=== PATIENT | female | born 1945 | race Caucasian/White ===

== ENCOUNTER 2017-11-20 12:06 | Emergency (ER) | payer MEDICARE, OTHER, SELFPAY ==
[2017-11-20 12:20] VITALS: BP 128/77; PULSE 68; RESP 16; O2SAT 98
--- NOTE | 2017-11-20 12:34 | DI.RAD.S_ITS ---
PROCEDURE: XR WRIST LT MIN 3V INDICATIONS: fall TECHNIQUE: 4 views of the wrist were acquired. COMPARISON: None. FINDINGS: Bones: No fractures or dislocations. No suspicious bony lesions. Scaphoid view: No trauma. Soft tissues: No suspicious soft tissue calcifications. IMPRESSION: No trauma. Dictated by: Galindo Osborne M.D. on 11/20/2017 at 13:12 Approved by: Galindo Osborne M.D. on 11/20/2017 at 13:13
--- NOTE | 2017-11-20 12:34 | DI.RAD.S_ITS ---
PROCEDURE: XR HAND LT MIN 3V INDICATIONS: fall TECHNIQUE: 3 views of the hand(s) acquired. COMPARISON: None. FINDINGS: Bones: No fractures or dislocations. Carpal bones are normally aligned. No suspicious bony lesions. Note is made of mild chronic appearing distortion of the mid shaft of the fifth distal phalanx. Soft tissues: No suspicious soft tissue calcifications. IMPRESSION: No acute trauma. Dictated by: Galindo Osborne M.D. on 11/20/2017 at 13:13 Approved by: Galindo Osborne M.D. on 11/20/2017 at 13:14
--- NOTE | 2017-11-20 12:34 | DI.RAD.S_ITS ---
PROCEDURE: XR WRIST RT MIN 3V INDICATIONS: fall TECHNIQUE: 4 views of the wrist were acquired. COMPARISON: None. FINDINGS: Bones: No acute fractures or dislocations. 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 suspicious bony lesions. Scaphoid view: No trauma. Soft tissues: No suspicious soft tissue calcifications. IMPRESSION: No acute trauma. Old fractures of the distal radius and ulna. Dictated by: Galindo Osborne M.D. on 11/20/2017 at 13:11 Approved by: Galindo Osborne M.D. on 11/20/2017 at 13:12
--- NOTE | 2017-11-20 12:34 | DI.RAD.S_ITS ---
PROCEDURE: XR HAND RT MIN 3V INDICATIONS: fall TECHNIQUE: 3 views of the hand(s) acquired. COMPARISON: [facility], CR, XR WRIST RT MIN 3V, 11/20/2017, 12:23. FINDINGS: Bones: No acute fractures or dislocations. Carpal bones are normally aligned. No suspicious bony lesions. Soft tissues: No suspicious soft tissue calcifications. IMPRESSION: Old trauma the distal radius and ulna, no acute trauma found. Dictated by: Galindo Osborne M.D. on 11/20/2017 at 13:14 Approved by: Galindo Osborne M.D. on 11/20/2017 at 13:15
[2017-11-20 12:43] VITALS: PULSE 77
--- NOTE | 2017-11-20 13:08 | ED.UPPEXIN ---
HPI - Extremity Injury (Upper) <Irene Loomis PA-C - Last Filed: 11/20/17 22:02> General Chief Complaint: Extremity Injury, Upper Stated Complaint: Ground Level Fall Time Seen by Provider: 11/20/17 13:07 Source: patient Mode of arrival: ambulatory Limitations: no limitations History of Present Illness HPI narrative: This 72-year-old female was walking quickly on carpet when she dragged her left foot and pitch forward, landing with all of her weight on both of her hands and wrists. 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 She states that her shoulders were also sore at 1st but now not painful and she does not think any injury. She did not hit her head or anywhere else. Denies any neck pain or other injury. She states that she has pain in both wrists and hands. Pain seems to radiate into the lateral fingers on both sides and is similar to previous nerve pain she had with carpal tunnel syndrome. She also notes that she has arthritis in both hands. She took Tylenol at home. Does not take NSAIDs secondary to GI upset Related Data Home Medications Medication Instructions Recorded Confirmed [Calcium Citrate] 300 mg PO QDAY #0 12/12/11 10/16/17 CA PANTOTHENATE/FOLIC ACID/VIT 1 tab PO BID #0 02/21/12 10/16/17 (MULTIVITAMIN) [VITAMIN B12] 1,000 mcg SUBLINGUAL #0 03/29/12 10/16/17 [ZINC] #0 11/15/12 10/16/17 ascorbic acid (vitamin C) 1,000 mg PO BID #0 tab 11/17/15 10/16/17 cholecalciferol (vitamin D3) 1 tab PO BID #0 11/17/15 10/16/17 [Vitamin D3] coenzyme Q10 75 mg capsule 75 mg PO DAILY 10/16/17 10/16/17 garlic 1,000 mg capsule 1,000 mg PO QPC 10/16/17 10/16/17 iodine 150 mcg tablet mcg PO tab 10/16/17 10/16/17 magnesium 30 mg tablet 30 mg PO DAILY 10/16/17 10/16/17 prasterone (dhea) 25 mg capsule 25 mg PO DAILY 10/16/17 10/16/17 Previous Rx's Medication Instructions Recorded acyclovir 400 mg PO TID #30 tab 12/03/15 [CMP ESTRIOL SUPP] 0.2 % VAGINAL SEE INSTRUCTIONS #24 06/05/17 tab lisinopril 5 mg PO QDAY #90 tab 06/13/17 bupropion HCl 100 mg PO BID #180 tab 07/03/17 diazepam 0 PO QDAY PRN #360 tab 07/03/17 diltiazem HCl [Tiazac] 360 mg PO QDAY #180 cap 07/03/17 potassium chloride 20 meq PO QDAY #180 tab 07/03/17 thyroid (pork) [[place] Thyroid] 0 PO SEE INSTRUCTIONS #135 tab 07/03/17 varicella-zoster gE-AS01B (PF) 0.5 ml IM X1 #1 ea 07/03/17 [Shingrix (PF)] tramadol 50 mg tablet 0 mg PO QIDP PRN #180 tab MDD 6 07/24/17 [CMP PROGESTERONE] SEE INSTRUCTIONS #0 10/10/17 [ESTRADIOL/ESTRIOL] 0 SEE INSTRUCTIONS #30 gm 10/10/17 hydrocortisone 2.5 % topical cream 1 applictn TOP TID PRN #30 gram 10/24/17 oxycodone-acetaminophen [Percocet] 1 tab PO Q4-6H PRN #7 tab 11/20/17 Allergies Allergy/AdvReac Type Severity Reaction Status Date / Time diclofenac [DICLOFENAC] Allergy Severe Hives, Unverified 10/16/17 09:12 fever, very sick, hospitalized Exam <Irene Loomis PA-C - Last Filed: 11/20/17 22:02> Narrative Exam Narrative: GENERAL APPEARANCE: Patient sitting comfortably, in no distress. LUNGS: Clear to auscultation bilaterally. HEART: Rate and rhythm regular without murmur, normal S1 and S2, no S3 or S4. MUSCULOSKELETAL: All of the fingers on both hands are nodular as is the right medial wrist joint. No tenderness over either shoulder, full range of motion. No tenderness over the elbows, full range of motion. She does not appear to have forearm tenderness. She has minimal tenderness over both wrists without any bony point tenderness. She is exquisitely tender over the right 2nd metacarpal and pointer finger as well as the left thumb, pointer, and middle fingers and metacarpals. She is able to nearly fully extend all of the fingers with tenderness on the lateral sides. Unable to assess strength secondary to tenderness. NEUROVASCULAR: Fingers are warm and pink with brisk cap refill bilaterally. Sensation is grossly intact Initial Vital Signs Initial Vital Signs: Vital Signs Pulse Rate 68 11/20/17 12:20 Respiratory Rate 16 11/20/17 12:20 Blood Pressure 128/77 H 11/20/17 12:20 Pulse Oximetry 98 11/20/17 12:20 <DO Caitlin Moise Last Filed: 11/21/17 14:19> Initial Vital Signs Initial Vital Signs: Vital Signs Pulse Rate 68 11/20/17 12:20 Respiratory Rate 16 11/20/17 12:20 Blood Pressure 128/77 H 11/20/17 12:20 Pulse Oximetry 98 11/20/17 12:20 Course <HOWARD Pruitt Last Filed: 11/20/17 22:02> Orders Ordered: Discontinued Medications Hydrocodone Bitart/Acetaminophen ([place] 5/325) 2 tab PO NOW ONE Stop: 11/20/17 13:23 Last Admin: 11/20/17 13:31 Dose: 2 tab Vital Signs - 8 hr 11/20/17 14:50 Pulse Rate 58 L Respiratory Rate 14 Blood Pressure [Left Arm] 113/72 Pulse Oximetry 97 <DO Caitlin Moise Last Filed: 11/21/17 14:19> Orders Ordered: Discontinued Medications Hydrocodone Bitart/Acetaminophen ([place] 5/325) 2 tab PO NOW ONE Stop: 11/20/17 13:23 Last Admin: 11/20/17 13:31 Dose: 2 tab Vital Signs - 8 hr 11/20/17 14:50 Pulse Rate 58 L Respiratory Rate 14 Blood Pressure [Left Arm] 113/72 Pulse Oximetry 97 MDM - Extremity Injury (Upper) <HOWARD Pruitt Last Filed: 11/20/17 22:02> Imaging Data extremities: Radiologist's impression: View Report History [address] [address] XRay Report Signed Patient: Liliana Magallon MR#: [id number] : 1945 Acct:[id number] Age/Sex: 72 / F Date of Service: 11/20/17 Loc: ED Accession Number: [id number] Procedure: XR wrist RT min 3V Ordering Provider: Irene Loomis P.A-C PROCEDURE: XR WRIST RT MIN 3V INDICATIONS: fall TECHNIQUE: 4 views of the wrist were acquired. COMPARISON: None. FINDINGS: Bones: No acute fractures or dislocations. 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 suspicious bony lesions. Scaphoid view: No trauma. Soft tissues: No suspicious soft tissue calcifications. IMPRESSION: No acute trauma. Old fractures of the distal radius and ulna. Dictated by: Galindo Osborne M.D. on 11/20/2017 at 13:11 Approved by: Galindo Osborne M.D. on 11/20/2017 at 13:12 CLOSE Wrist X-Ray (Signed) Dylon,Galindo - 11/20/17 Wrist X-Ray (Signed) Dylon,Galindo - 11/20/17 Hand X-Ray (Signed) Dylon,Galindo - 11/20/17 Hand X-Ray (Signed) Galindo Osborne - 11/20/17 [place] [address] XRay Report Signed Patient: Liliana Magallon MR#: [id number] : 1945 Acct:[id number] Age/Sex: 72 / F Date of Service: 11/20/17 Loc: ED Accession Number: [id number] Procedure: XR wrist LT min 3V Ordering Provider: Irene Loomis P.A-C PROCEDURE: XR WRIST LT MIN 3V INDICATIONS: fall TECHNIQUE: 4 views of the wrist were acquired. COMPARISON: None. FINDINGS: Bones: No fractures or dislocations. No suspicious bony lesions. Scaphoid view: No trauma. Soft tissues: No suspicious soft tissue calcifications. IMPRESSION: No trauma. Dictated by: Galindo Osborne M.D. on 11/20/2017 at 13:12 Approved by: Galindo Osborne M.D. on 11/20/2017 at 13:13 [place] [address] XRay Report Signed Patient: Liliana Magallon MR#: [id number] : 1945 Acct:[id number] Age/Sex: 72 / F Date of Service: 11/20/17 Loc: ED Accession Number: [id number] Procedure: XR hand LT min 3V Ordering Provider: Irene Loomis P.A-C PROCEDURE: XR HAND LT MIN 3V INDICATIONS: fall TECHNIQUE: 3 views of the hand(s) acquired. COMPARISON: None. FINDINGS: Bones: No fractures or dislocations. Carpal bones are normally aligned. No suspicious bony lesions. Note is made of mild chronic appearing distortion of the mid shaft of the fifth distal phalanx. Soft tissues: No suspicious soft tissue calcifications. IMPRESSION: No acute trauma. Dictated by: Galindo Osborne M.D. on 11/20/2017 at 13:13 Approved by: Galindo Osborne M.D. on 11/20/2017 at 13:14 [place] [address] XRay Report Signed Patient: Liliana Magallon MR#: [id number] : 1945 Acct:[id number] Age/Sex: 72 / F Date of Service: 11/20/17 Loc: ED Accession Number: [id number] Procedure: XR hand LT min 3V Ordering Provider: Irene Loomis P.A-C PROCEDURE: XR HAND LT MIN 3V INDICATIONS: fall TECHNIQUE: 3 views of the hand(s) acquired. COMPARISON: None. FINDINGS: Bones: No fractures or dislocations. Carpal bones are normally aligned. No suspicious bony lesions. Note is made of mild chronic appearing distortion of the mid shaft of the fifth distal phalanx. Soft tissues: No suspicious soft tissue calcifications. IMPRESSION: No acute trauma. Dictated by: Galindo Osborne M.D. on 11/20/2017 at 13:13 Approved by: Galindo Osborne M.D. on 11/20/2017 at 13:14 Discharge Plan Departure Patient Disposition: Home Clinical Impression: Contusion of multiple sites of hand and wrist, Osteoarthritis Discharge Date/Time: 11/20/17 14:59 Interventions: ED Discharge Assessment Last Done: 11/20/17 14:58 Instructions: DI for Osteoarthritis, DI for Wrist Pain Activity Restrictions/Additional Instructions: Please continue wearing the brandon-wraps we provided to your mid fingers, and then wear your carpal tunnel splints over these. Keep these on 16/10 for now, and follow up with your PCP within the next week to reassess. You can take Percocet for the next day or so if you need since that worked well for you previously, but do not drive as this could make you sleepy. If you can take a small dose of anti-inflammatory such as ibuprofen or Aleve with food please add that as well as it is likely to be helpful for pain and swelling. There does not appear to be any acute fracture on your x-rays today, however you do have a significant amount of arthritis, and the fall and contusions likely exacerbated this as well as your nerve pain that you have had in the past. If you are not getting better, you may need repeat x-rays or studies when you see your PCP. You should return if you have any new or acutely worsening symptoms in the interim Prescriptions: New oxycodone-acetaminophen [Percocet] 5-325 mg tablet 1 tab PO Q4-6H PRN (Reason: pain in hands and wrists) Qty: 7 RF: 0 No Action [Calcium Citrate] 300 mg PO QDAY Qty: 0 RF: 0 CA PANTOTHENATE/FOLIC ACID/VIT (MULTIVITAMIN) 1 tab PO BID Qty: 0 RF: 0 [VITAMIN B12] 1,000 mcg Sublingual Qty: 0 RF: 0 [ZINC] Qty: 0 RF: 0 cholecalciferol (vitamin D3) [Vitamin D3] 2,000 UNIT tablet 1 tab PO BID Qty: 0 RF: 0 ascorbic acid (vitamin C) 500 MG tablet 1,000 mg PO BID Qty: 0 RF: 0 acyclovir 400 MG tablet 400 mg PO TID Qty: 30 RF: 5 [CMP ESTRIOL SUPP] 0.2 % Vaginal SEE INSTRUCTIONS Qty: 24 RF: 3 lisinopril 5 MG tablet 5 mg PO QDAY Qty: 90 RF: 3 varicella-zoster gE-AS01B (PF) [Shingrix (PF)] 50 MCG/0.5 ML suspension for reconstitution 0.5 ml IM X1 Qty: 1 RF: 0 diazepam 5 MG tablet PO QDAY PRN Qty: 360 RF: 1 diltiazem HCl [Tiazac] 180 MG capsule,extended release 24 hr 360 mg PO QDAY Qty: 180 RF: 3 potassium chloride 10 MEQ tablet extended release 20 meq PO QDAY Qty: 180 RF: 3 bupropion HCl 100 MG tablet 100 mg PO BID Qty: 180 RF: 3 thyroid (pork) [[place] Thyroid] 60 MG tablet PO SEE INSTRUCTIONS Qty: 135 RF: 3 tramadol 50 mg tablet PO QIDP MDD 6 PRN (Reason: pain) Qty: 180 RF: 3 [CMP PROGESTERONE] SEE INSTRUCTIONS Qty: 0 RF: 3 [ESTRADIOL/ESTRIOL] SEE INSTRUCTIONS Qty: 30 RF: 3 hydrocortisone 2.5 % cream 1 applictn TOP TID PRN (Reason: rash) Qty: 30 RF: 1 magnesium 30 mg tablet 30 mg PO DAILY RF: 0 iodine 150 mcg tablet PO RF: 0 coenzyme Q10 [Ultra CoQ10] 75 mg capsule 75 mg PO DAILY RF: 0 garlic 1,000 mg capsule 1,000 mg PO QPC RF: 0 prasterone (dhea) [DHEA] 25 mg capsule 25 mg PO DAILY RF: 0 Referrals: Jeison Morrison MD [Primary Care Provider] - <Sandra Ruiz DO - Last Filed: 11/21/17 14:19> Cosign ED Attending Cosignature Attestation: I was immediately available in the department for consultation. Documentation has been reviewed. I agree with assessment and plan.
[2017-11-20] MEDS: HYDROCODONE/ACET 5/325 TABLET 2 TAB PO (13:31)
[2017-11-20 14:50] VITALS: BP 113/72; PULSE 58; RESP 14; O2SAT 97
== END 2017-11-20 14:59 | disposition home or self-care (01) ==
PROVIDERS: Emergency Provider Internal Medicine; PCP Family Medicine
DX: S60.222A Contusion of left hand, initial encounter (principal); S60.212A Contusion of left wrist, initial encounter; S60.221A Contusion of right hand, initial encounter; S60.211A Contusion of right wrist, initial encounter; M19.90 Unspecified osteoarthritis, unspecified site; W01.0XXA Fall on same level from slipping, tripping and stumbling without subsequent striking against object, initial encounter
CPT/HCPCS: 29125; 73110; 73130; 99282; 99283

== ENCOUNTER → 2017-12-20 12:06 | Outpatient (CLI) | payer MEDICARE, OTHER, SELFPAY ==
--- NOTE | 2017-12-20 12:09 | DI.MG.S_ITS ---
BILATERAL DIGITAL SCREENING MAMMOGRAM 3D/2D WITH CAD: 12/20/2017 CLINICAL: Routine screening. Family history of breast cancer. Comparison is made to exams dated: 06/26/2016 mammogram, 06/25/2015 mammogram, and 05/14/2014 mammogram - [facility]. The tissue of both breasts is extremely dense, which lowers the sensitivity of mammography. Current study was also evaluated with a Computer Aided Detection (CAD) system. There is an asymmetry in the left breast posterior depth superior region seen on the mediolateral oblique view only. No other significant masses, calcifications, or other findings are seen in either breast. IMPRESSION: INCOMPLETE: NEEDS ADDITIONAL IMAGING EVALUATION The asymmetry in the left breast is indeterminate. Additional views with possible ultrasound are recommended. This exam was interpreted at Station ID: [id number]. NOTE: For mammograms, a report in lay terms will be sent to the patient. Approximately 15% of breast malignancies will not be visualized mammographically. In the management of a palpable breast mass, a negative mammogram must not discourage biopsy of a clinically suspicious lesion. Electronically Signed By: Thao benson/yvan:12/21/2017 14:33:45 letter sent: Additional Imaging Needed ACR BI-RADS Category 0: Incomplete [id number]
== END ==
PROVIDERS: PCP Family Medicine; Visit Provider Obstetrics & Gynecology
DX: Z12.31 Encounter for screening mammogram for malignant neoplasm of breast (principal); Z80.3 Family history of malignant neoplasm of breast
CPT/HCPCS: 77063; 77067

== ENCOUNTER → 2018-01-07 10:55 | Outpatient (CLI) | payer MEDICARE, OTHER, SELFPAY ==
[2018-01-07 12:22] LABS: Add Manual Diff / Slide Review NO; Basophils Percent Auto 0.9 % (0-2); Eosinophils Percent Auto 2.5 % (2-4); Hematocrit 41.5 % (36-46); Lymphocytes Percent Auto 22.5 % (25-40); Mean Corpuscular HGB Conc 33.8 % (30-36); Mean Corpuscular Hemoglobin 32.3 PG (26-34); Mean Corpuscular Volume 95.5 fL (80-100); Monocytes Percent Auto 6.1 % (3-14); Neutrophils Absolute Auto 3700 /uL (3000-5900); Platelet Count 277 X10^3/uL (150-400); Red Blood Cell Count 4.34 X10^6/uL (4.0-5.2); Red Cell Distribution Width 13.8 % (11.6-14.8); White Blood Cell Count 5.4 X10^3/uL (4.5-11.0)
[2018-01-07 12:38] LABS: Alanine Aminotransferase 24 IU/L (9-52); Albumin 4.4 g/dL (3.5-5.0); Albumin Globulin Ratio 1.9 (1.0-2.8); Alkaline Phosphatase 75 U/L (38-126); Aspartate Aminotransferase 27 IU/L (14-36); BUN Creatinine Ratio 16.7 (6-22); Bilirubin Total 0.6 mg/dL (0.2-1.3); Blood Urea Nitrogen 15 mg/dL (7-17); Calcium 9.5 mg/dL (8.4-10.2); Carbon Dioxide 33 mmol/L (22-32); Chloride 103 mmol/L (98-107); Cholesterol 210 mg/dL (140-199); Estimated Glomerular Filt Rate > 60.0 mL/min (>60); Globulin 2.3 g/dL (1.7-4.1); Glucose 81 mg/dL (80-110); HDL Cholesterol 85 mg/dL (40-60); HEMOLYSIS < 15 (0-50); LDL Cholesterol Calculated 112 mg/dL (<100); Potassium 4.6 mmol/L (3.4-5.1); Sodium 144 mmol/L (137-145); Total Protein 6.7 g/dL (6.3-8.2); Triglycerides 66 mg/dL (35-150)
[2018-01-07 12:40] LABS: HEMOLYSIS < 15 (0-50); Iron 121 ug/dL (37-170)
[2018-01-07 12:51] LABS: Free T3, Triiodothyronine Free 3.78 pg/mL (2.77-5.27); Percent Iron Saturation 55 % (15-50); Total Iron Binding Capacity 220 ug/dL (265-497); Transferrin 192 mg/dL (206-381)
[2018-01-07 13:05] LABS: TSH w/ Reflex to FT4 0.72 uIU/mL (0.47-4.68)
== END ==
PROVIDERS: PCP Family Medicine; Visit Provider Family Medicine
DX: Z01.810 Encounter for preprocedural cardiovascular examination (principal); E03.9 Hypothyroidism, unspecified; E78.5 Hyperlipidemia, unspecified; E61.1 Iron deficiency; I10 Essential (primary) hypertension
CPT/HCPCS: 36415; 80053; 80061; 82728; 83540; 83550; 84443; 84481; 85025; 93005; 93010

== ENCOUNTER → 2018-01-14 09:27 | Outpatient (CLI) | payer MEDICARE, OTHER, SELFPAY ==
--- NOTE | 2018-01-14 09:29 | DI.MG.S_ITS ---
UNILATERAL LEFT DIGITAL DIAGNOSTIC MAMMOGRAM 3D/2D WITH ADDITIONAL VIEWS: 01/14/2018 CLINICAL: Additional evaluation requested from prior study. Family history of breast cancer. Comparison is made to exams dated: 12/20/2017 mammogram, 06/26/2016 mammogram, and 06/25/2015 mammogram - [facility]. The tissue of left breast is extremely dense, which lowers the sensitivity of mammography. The asymmetry in the left breast posterior depth superior region seen on the mediolateral oblique view only is not seen in additional views. No other significant masses or calcifications are seen in the breast. IMPRESSION: There is no mammographic evidence of malignancy. A 1 year screening mammogram is recommended. This exam was interpreted at Station ID: [id number]. NOTE: For mammograms, a report in lay terms will be sent to the patient. Approximately 15% of breast malignancies will not be visualized mammographically. In the management of a palpable breast mass, a negative mammogram must not discourage biopsy of a clinically suspicious lesion. Electronically Signed By: Thao Carter M.D. lk/:01/14/2018 09:52:31 letter sent: Normal Exam ACR BI-RADS Category 2: Benign Finding(s) 3342F
== END ==
PROVIDERS: Visit Provider Obstetrics & Gynecology
DX: R92.8 Other abnormal and inconclusive findings on diagnostic imaging of breast (principal); Z80.3 Family history of malignant neoplasm of breast
CPT/HCPCS: 77065; G0279

== ENCOUNTER 2018-02-02 11:06 | Emergency (ER) | payer MEDICARE, OTHER, SELFPAY ==
[2018-02-02 11:12] VITALS: BP 178/67; PULSE 82; RESP 18; TEMP 37.1; O2SAT 99
--- NOTE | 2018-02-02 11:56 | DI.RAD.S_ITS ---
PROCEDURE: XR FOOT RT MIN 3V INDICATIONS: foot pain, no injury TECHNIQUE: 3 views of the foot were acquired. COMPARISON: None. FINDINGS: Bones: Small linear calcification is noted adjacent to the fifth metatarsal base. No suspicious bony lesions. There is diffuse IP degenerative narrowing particularly within the first digit consistent with degenerative change. Soft tissues: No tibiotalar joint effusion. Achilles tendon appears normal. IMPRESSION: Small linear calcification adjacent to the fifth metatarsal base. This could be reflective of a small bone spur. Ultimately, small avulsion injury indeterminate age cannot be excluded. Dictated by: Alicia Davila M.D. on 02/02/2018 at 12:11 Approved by: Alicia Davila M.D. on 02/02/2018 at 12:12
--- NOTE | 2018-02-02 12:01 | ED_ITS ---
HPI - Extremity Problem General Chief complaint: Extremity Problem,Nontraumatic Stated complaint: RT FOOT PAIN Time Seen by Provider: 02/02/18 11:10 Source: patient Mode of arrival: ambulatory Limitations: no limitations History of Present Illness HPI Narrative: 72-year-old nonsmoking female presents with a chief complaint of gradually worsening right foot pain in the absence of any injury for the past 4 days. She denies any specific injury, overuse injury or other suggestion of etiology of this pain. She denies any redness or swelling. She denies any history of the same. She denies any knee or hip pain on the same side. She states that her pain is worse with ambulation and improves with rest. Additionally she states her pain is better if she externally rotates her foot while walking, like a duck. She does state that she wore a new pair of boots for a few days prior to her pain starting MD Complaint: extremity pain Onset (ago): day(s) Pain Consistency: intermittent Location: right Quality: burning and stabbing Radiation: none Relieving factors: rest Exacerbating factors: range of motion, weight bearing and walking Associated symptoms: denies other symptoms Related Data Home Medications Medication Instructions Recorded Confirmed [Calcium Citrate] 300 mg PO QDAY #0 12/12/11 10/16/17 CA PANTOTHENATE/FOLIC ACID/VIT 1 tab PO BID #0 02/21/12 10/16/17 (MULTIVITAMIN) [VITAMIN B12] 1,000 mcg SUBLINGUAL #0 03/29/12 10/16/17 [ZINC] #0 11/15/12 10/16/17 ascorbic acid (vitamin C) 1,000 mg PO BID #0 tab 11/17/15 10/16/17 cholecalciferol (vitamin D3) 1 tab PO BID #0 11/17/15 10/16/17 [Vitamin D3] coenzyme Q10 75 mg capsule 75 mg PO DAILY 10/16/17 10/16/17 garlic 1,000 mg capsule 1,000 mg PO QPC 10/16/17 10/16/17 iodine 150 mcg tablet mcg PO tab 10/16/17 10/16/17 magnesium 30 mg tablet 30 mg PO DAILY 10/16/17 10/16/17 prasterone (dhea) 25 mg capsule 25 mg PO DAILY 10/16/17 10/16/17 Previous Rx's Medication Instructions Recorded acyclovir 400 mg PO TID #30 tab 12/03/15 [CMP ESTRIOL SUPP] 0.2 % VAGINAL SEE INSTRUCTIONS #24 06/05/17 tab lisinopril 5 mg PO QDAY #90 tab 06/13/17 bupropion HCl 100 mg PO BID #180 tab 07/03/17 diltiazem HCl [Tiazac] 360 mg PO QDAY #180 cap 07/03/17 potassium chloride 20 meq PO QDAY #180 tab 07/03/17 thyroid (pork) [[place] Thyroid] 0 PO SEE INSTRUCTIONS #135 tab 07/03/17 varicella-zoster gE-AS01B (PF) 0.5 ml IM X1 #1 ea 07/03/17 [Shingrix (PF)] tramadol 50 mg tablet 0 mg PO QIDP PRN #180 tab MDD 6 07/24/17 [CMP PROGESTERONE] SEE INSTRUCTIONS #0 10/10/17 [ESTRADIOL/ESTRIOL] 0 SEE INSTRUCTIONS #30 gm 10/10/17 hydrocortisone 2.5 % topical cream 1 applictn TOP TID PRN #30 gram 10/24/17 oxycodone-acetaminophen [Percocet] 1 tab PO Q4-6H PRN #7 tab 11/20/17 diazepam 5 mg tablet 5 mg PO QDAY PRN #90 tab 01/29/18 Allergies Allergy/AdvReac Type Severity Reaction Status Date / Time diclofenac [DICLOFENAC] Allergy Severe Hives, Unverified 10/16/17 09:12 fever, very sick, hospitalized Review of Systems Review of Systems All systems reviewed & are unremarkable except as noted in HPI and below Constitutional Denies chills, Denies fever(s), Denies lethargy and Denies weakness Eyes Denies change in vision, Denies eye discharge, Denies irritation and Denies loss of vision ENT Ears, Nose, Mouth, and Throat: Denies change in voice, Denies neck pain and Denies sore throat Cardiovascular Denies chest pain, Denies irregular heart rhythm, Denies lightheadedness, Denies palpitations, Denies dyspnea, Denies dyspnea on exertion and Denies orthopnea Respiratory Denies cough, Denies dyspnea, Denies dyspnea on exertion and Denies wheezing Gastrointestinal Gastrointestinal: Denies abdominal pain, Denies change in bowel habits, Denies diarrhea, Denies nausea and Denies vomiting Genitourinary Denies hematuria, Denies flank pain, Denies urinary incontinence and Denies urinary urgency Musculoskeletal Reports limited range of motion and Denies neck pain Integumentary/Breasts Denies pruritus, Denies erythema, Denies rash and Denies wounds Neurologic Denies confusion, Denies loss of vision and Denies weakness Psychiatric Denies anxiety, Denies confusion, Denies depression, Denies homicidal ideation and Denies suicidal ideation Endocrine Denies palpitations Hematologic/Lymphatic Denies easy bruising Allergic/Immunologic Denies wheezing FOR[facility]LY [facility], [facility] Medical History Alopecia (Chronic) Anxiety (Chronic) Arthritis of knee (Chronic) Cataract (Chronic 2015) Depression (Chronic) Frequent UTI (Chronic 2012) Herpes simplex (Chronic ~1979) Hyperlipidemia (Chronic) Hypertension (Chronic ~1979) Hypothyroidism (Chronic 2012) Lactose intolerance (Chronic) Osteoarthritis (Chronic) Sleep disorder, shift work (Chronic) Ulcerative colitis (Chronic 1986) CTS (carpal tunnel syndrome) (Resolved 2014) Chicken pox (Resolved 1952) Chronic back pain (Resolved 1983) Colon polyps (Resolved 2009) Fractures (Resolved 1985) Gout (Resolved 1999) History of iron deficiency (Resolved 2012) History of thyroid cyst (Resolved 1973) Lumbar spinal stenosis (Resolved 2015) Measles (Resolved ~1952) Mumps (Resolved ~1952) Ovarian cyst (Resolved 1982) Rubella (Resolved 1952) Surgical History Anesthesia (Resolved) History of carpal tunnel release (Resolved 01/05/15) History of cosmetic surgery (Resolved 01/14/15) History of cosmetic surgery (Resolved 1997) History of knee replacement (Resolved 03/2012) History of left knee surgery (Resolved 2009) History of left knee surgery (Resolved 2011) History of right knee surgery (Resolved 2008) History of spinal surgery (Resolved 05/17/15) History of surgery (Resolved 1985) History of surgery (Resolved 1988) History of third molar tooth extraction (Resolved) History of thyroidectomy (Resolved 1973) Status post ovarian cystectomy (Resolved 1982) Status post tonsillectomy and adenoidectomy (Resolved) Status post tubal ligation (Resolved 1983) Family History Brother Age: 69 Diabetes mellitus Melanoma Father Alcoholism Paget's disease of bone at multiple sites Grandfather CAD (coronary artery disease) Heart disease Hypertension Stroke Grandmother Dementia, Onset Age: 90 Absence of kidney Mother Age: 94 Hypertension Hyperlipidemia Stroke, Onset Age: 70 Breast cancer Grandmother Type 1 diabetes mellitus Grandfather Aspiration into airway Sister Meningitis Sister Type 1 diabetes mellitus Social History Smoking Status: Never smoker Exam Narrative Exam Narrative: GEN: 72-year-old female resting comfortably EYES: Pupils are equal, round, and reactive to light and accommodation. Extraoccular muscles are intact bilaterally. There is no subconjunctival hemorrhage or exudate. CHEST: Lungs are clear to auscultation bilaterally and free of wheezes, rales, or rhonchi. Heart rate is regular rhythm, there are no murmurs, clicks, rubs, or gallops. There is no chest wall tenderness. ABD: Abdomen is soft and nontender. There is no guarding or rebound. Bowel sounds are normal in all 4 quadrants. There is no mass or organomegaly. EXT: No obvious external manifestation of her pain. No redness, warmth or swelling. The patient does state that it she see some swelling on the dorsum of the foot but I am unable to appreciate this. She has no pain on palpation of the lateral foot is otherwise well. Full painless ROM of all extremities with no loss of sensation or strength. SKIN: Warm, pink, and dry. No erythema or rash Initial Vital Signs Initial Vital Signs: Vital Signs Temperature 98.7 F 02/02/18 11:12 Pulse Rate 82 02/02/18 11:12 Respiratory Rate 18 02/02/18 11:12 Blood Pressure 178/67 H 02/02/18 11:12 Pulse Oximetry 99 02/02/18 11:12 Course Orders Ordered: ED Orders 02/02/18 11:56 XR foot RT min 3V Stat Vital Signs - 8 hr 02/02/18 11:12 02/02/18 14:27 Temperature 98.7 F Pulse Rate 82 60 Respiratory Rate 18 18 Blood Pressure 178/67 H 125/83 Pulse Oximetry 99 99 MDM - Extremity (Nontraumatic) Imaging Data Foot Xray: Attestation: I personally reviewed and interpreted this imaging study as follows: Radiologist's impression: [address] [address] XRay Report Signed Patient: Liliana Magallon [facility]#: [id number] : 1945cct:[id number] Age/Sex: 72 / FDate of Service: 02/02/18 Loc: ED Accession Number: [id number] Procedure: XR foot RT min 3V Ordering Provider: Pete Miner D.O. PROCEDURE: XR FOOT RT MIN 3V INDICATIONS: foot pain, no injury TECHNIQUE: 3 views of the foot were acquired. COMPARISON: None. FINDINGS: Bones: Small linear calcification is noted adjacent to the fifth metatarsal base. No suspicious bony lesions. There is diffuse IP degenerative narrowing particularly within the first digit consistent with degenerative change. Soft tissues: No tibiotalar joint effusion. Achilles tendon appears normal. IMPRESSION: Small linear calcification adjacent to the fifth metatarsal base. This could be reflective of a small bone spur. Ultimately, small avulsion injury indeterminate age cannot be excluded. Dictated by: Alicia Davila M.D. on 02/02/2018 at 12:11 Approved by: Alicia Davila M.D. on 02/02/2018 at 12:12 Discharge Plan Departure Patient Disposition: Home Clinical Impression: Bone spur Discharge Date/Time: 02/02/18 14:26 Interventions: ED Discharge Assessment Last Done: 02/02/18 14:27 Instructions: DI for Foot Pain Activity Restrictions/Additional Instructions: *You have been diagnosed with [ right foot pain likely bone spur, possible small avulsion fracture ] *What to do: *Take medications as directed *Follow up with your primary care provider in 2-3 days, call for an appointment. Let them know you were seen in the Emergency Department and that we ask that you be seen in follow up *Return to ER if you should have any new, worsening or concerning symptoms Prescriptions: No Action [Calcium Citrate] 300 mg PO QDAY Qty: 0 RF: 0 CA PANTOTHENATE/FOLIC ACID/VIT (MULTIVITAMIN) 1 tab PO BID Qty: 0 RF: 0 [VITAMIN B12] 1,000 mcg Sublingual Qty: 0 RF: 0 [ZINC] Qty: 0 RF: 0 cholecalciferol (vitamin D3) [Vitamin D3] 2,000 UNIT tablet 1 tab PO BID Qty: 0 RF: 0 ascorbic acid (vitamin C) 500 MG tablet 1,000 mg PO BID Qty: 0 RF: 0 acyclovir 400 MG tablet 400 mg PO TID Qty: 30 RF: 5 [CMP ESTRIOL SUPP] 0.2 % Vaginal SEE INSTRUCTIONS Qty: 24 RF: 3 lisinopril 5 MG tablet 5 mg PO QDAY Qty: 90 RF: 3 varicella-zoster gE-AS01B (PF) [Shingrix (PF)] 50 MCG/0.5 ML suspension for reconstitution 0.5 ml IM X1 Qty: 1 RF: 0 diltiazem HCl [Tiazac] 180 MG capsule,extended release 24 hr 360 mg PO QDAY Qty: 180 RF: 3 potassium chloride 10 MEQ tablet extended release 20 meq PO QDAY Qty: 180 RF: 3 bupropion HCl 100 MG tablet 100 mg PO BID Qty: 180 RF: 3 thyroid (pork) [[place] Thyroid] 60 MG tablet PO SEE INSTRUCTIONS Qty: 135 RF: 3 tramadol 50 mg tablet PO QIDP MDD 6 PRN (Reason: pain) Qty: 180 RF: 3 [CMP PROGESTERONE] SEE INSTRUCTIONS Qty: 0 RF: 3 [ESTRADIOL/ESTRIOL] SEE INSTRUCTIONS Qty: 30 RF: 3 hydrocortisone 2.5 % cream 1 applictn TOP TID PRN (Reason: rash) Qty: 30 RF: 1 diazepam 5 mg tablet 5 mg PO QDAY PRN Qty: 90 RF: 0 magnesium 30 mg tablet 30 mg PO DAILY RF: 0 iodine 150 mcg tablet PO RF: 0 coenzyme Q10 [Ultra CoQ10] 75 mg capsule 75 mg PO DAILY RF: 0 garlic 1,000 mg capsule 1,000 mg PO QPC RF: 0 prasterone (dhea) [DHEA] 25 mg capsule 25 mg PO DAILY RF: 0 oxycodone-acetaminophen [Percocet] 5-325 mg tablet 1 tab PO Q4-6H PRN (Reason: pain in hands and wrists) Qty: 7 RF: 0 Referrals: Boni Foreman MD [Primary Care Provider] -
[2018-02-02 14:27] VITALS: BP 125/83; PULSE 60; RESP 18; O2SAT 99
== END 2018-02-02 14:26 | disposition home or self-care (01) ==
PROVIDERS: Emergency Provider Emergency Medicine; PCP Student in an Organized Health Care Education/Training Program
DX: M77.51 Other enthesopathy of right foot and ankle (principal)
CPT/HCPCS: 29550; 73630; 99282; 99283

== ENCOUNTER → 2018-10-22 08:27 | Outpatient (CLI) | payer MEDICARE, OTHER, SELFPAY ==
[2018-10-22 09:54] LABS: HEMOLYSIS < 15 (0-50); Iron 108 ug/dL (37-170)
[2018-10-22 10:00] LABS: Blood Urea Nitrogen 15 mg/dL (7-17); Calcium 9.4 mg/dL (8.4-10.2); Carbon Dioxide 30 mmol/L (22-32); Chloride 103 mmol/L (98-107); Estimated Glomerular Filt Rate 54.5 mL/min (>60); Glucose 93 mg/dL (80-110); HEMOLYSIS < 15 (0-50); Potassium 4.6 mmol/L (3.4-5.1); Sodium 141 mmol/L (137-145)
[2018-10-22 10:04] LABS: Transferrin 198 mg/dL (206-381)
[2018-10-22 10:05] LABS: Percent Iron Saturation 46 % (15-50); Total Iron Binding Capacity 234 ug/dL (265-497)
[2018-10-22 10:14] LABS: Vitamin D 25 Hydroxy (D3) 65.9 ng/mL (30.0-100.0)
[2018-10-22 10:45] LABS: Vitamin B12 933 pg/mL (239-931)
== END ==
PROVIDERS: PCP Student in an Organized Health Care Education/Training Program; Visit Provider Student in an Organized Health Care Education/Training Program
DX: I10 Essential (primary) hypertension (principal); N17.9 Acute kidney failure, unspecified; K90.9 Intestinal malabsorption, unspecified; E61.1 Iron deficiency; Z78.9 Other specified health status
CPT/HCPCS: 36415; 80048; 82306; 82607; 83540; 83550

== ENCOUNTER → 2019-01-15 09:05 | Outpatient (CLI) | payer MEDICARE, OTHER, SELFPAY ==
--- NOTE | 2019-01-15 | DI.MG.S_ITS ---
BILATERAL DIGITAL SCREENING MAMMOGRAM 3D/2D WITH CAD: 01/15/2019 CLINICAL: Routine screening. Family history of breast cancer. Comparison is made to exams dated: 12/20/2017 mammogram, 06/26/2016 mammogram, and 06/25/2015 mammogram - [facility]. The tissue of both breasts is extremely dense, which lowers the sensitivity of mammography. Current study was also evaluated with a Computer Aided Detection (CAD) system. There are benign vascular calcifications in both breasts. No significant masses, calcifications, or other findings are seen in either breast. There has been no significant interval change. IMPRESSION: There is no mammographic evidence of malignancy. A 1 year screening mammogram is recommended. This exam was interpreted at Station ID: [id number]. NOTE: For mammograms, a report in lay terms will be sent to the patient. Approximately 15% of breast malignancies will not be visualized mammographically. In the management of a palpable breast mass, a negative mammogram must not discourage biopsy of a clinically suspicious lesion. Electronically Signed By: Thao benson/yvan:01/15/2019 09:36:57 letter sent: Normal Exam ACR BI-RADS Category 2: Benign Finding(s) 3342F
== END ==
PROVIDERS: PCP Student in an Organized Health Care Education/Training Program; Visit Provider Obstetrics & Gynecology
DX: Z12.31 Encounter for screening mammogram for malignant neoplasm of breast (principal); Z80.3 Family history of malignant neoplasm of breast
CPT/HCPCS: 77063; 77067

== ENCOUNTER 2019-02-06 06:14 | Day surgery (SDC) | payer MEDICARE, OTHER, SELFPAY ==
[2019-01-30 08:04] VITALS: BMI 23.8
[2019-02-06] VITALS (18 sets, daily range): BP systolic 101–143; BP diastolic 42–85; PULSE 62–98; RESP 5–18; TEMP 35.8–36.6; O2SAT 90–99; BMI 23.8
--- NOTE | 2019-02-06 | PATH_ITS ---
[facility] Accession Number: [id number] . 01 Material submitted: . uterus - UTERUS, CERVIX, FALLOPIAN TUBES AND OVARIES (BILATERAL) . 02 Diagnosis: Uterus, Cervix, Fallopian Tubes and Ovaries (Bilateral), Hysterectomy and Bilateral Salpingo-oophorectomy (Weight of Uterus After Removal of Bilateral Adnexa 57.0 grams): Cervix with no significant histomorphologic abnormality. Endocervix with prominent nabothian gland cysts and microglandular hyperplasia; negative for glandular dysplasia or malignancy. Myometrium with a subserosal/intramural leiomyoma (2.0 cm in greatest dimension); negative for cytologic atypia, increased mitotic activity or necrosis. Uterine serosa with a small nonspecific adhesion by gross examination. Left fallopian tube with no significant histomorphologic abnormality. Right fallopian tube with a benign paratubal cyst and otherwise no significant histomorphologic abnormality. Left ovary with a benign serous cyst (0.6 cm) and otherwise no significant histomorphologic abnormality. Right ovary with no significant histomorphologic abnormality. MRV 02/10/2019 1035 Local . 02 Electronically signed: . Emilee Beauchamp MD, Pathologist NPI- [id number] . 01 Gross description: . Specimen is received in a formalin-filled container, labeled uterus, cervix, fallopian tubes, and bilateral ovaries, and consists of a 5.7 cm (cornu to cornu) by 5.6 cm (superior to inferior) by 4.1 cm (anterior to posterior) uterus with attached bilateral adnexa and an attached 2.5 cm in length cervix. After removal of the bilateral adnexa, the uterus and cervix have a combined weight of 57.0 grams. The 4.8 x 4.2 cm ectocervix is pink-webster smooth and has a centrally located 0.8 cm slit-like os. The endocervix is pink-webster with the usual palmate folds and sectioning of the endocervix reveals grossly unremarkable cut surfaces. The uterine serosa is webster, smooth, intact and has a focal area of pink-red adhesion up to 0.3 cm. Sectioning of the uterus reveals a single webster-white, whorled, bulging, well-delineated, subserosal, myometrial uterine nodule up to 2.0 cm, which has white, whorled cut surfaces. The remaining cut surfaces are unremarkable. The endometrium is pink-red, scant, up to less than 0.1 cm in thickness. The myometrium is webster, trabeculated up to 1.7 cm in thickness. The previously attached 5.2 x 0.6 cm left fimbriated fallopian tube has an underlying attached 2.0 x 1.7 x 1.5 cm ovary which has a combined weight of 6.0 grams. The 4.0 x 0.6 cm right fimbriated fallopian tube has an underlying attached 3.5 x 1.1 x 0.8 cm right ovary which has a combined weight of 6.0 grams. Both fallopian tubes are pink-red, smooth and intact. Sectioning of both tubes reveals hemorrhagic, otherwise grossly unremarkable cut surfaces with a pinpoint lumen. Both ovaries have webster smooth nodular serosa and sectioning of both ovaries reveals hemorrhagic cut surfaces and the left ovary has a single thin-walled clear fluid-filled cystic cavity up to 0.6 cm that has smooth cyst linings. The remaining ovarian cut surfaces are unremarkable. Dental Office Manager sections are submitted as follows: A1 - anterior endo-ectocervix; A2 - posterior endo-ectocervix; A3 - anterior uterus, full thickness section; A4 - posterior uterus, full thickness section; A5 - aforementioned uterine nodule (each tissue coming from the same nodule); A6 - left fimbriated fallopian tube; A7 - left ovary; A8 - right fimbriated fallopian tube; A9 - right ovary. ([id number]) /MRV 02/07/2019 [facility] . 02 Pathologist provided ICD-10: N81.4, N81.10, N81.6 . 02 CPT . 225439 Performed at: 01 [facility] [address] [place] [address] [facility], [place], [place] [id number] MD Jordan Parrish MD Phone: [phone] Performed at: 02 [facility] [address] [place] [id number] MD Ana Hopkins MD Phone: [phone]
[2019-02-06] MEDS: LACTATED RINGERS 1,000 ML 100 ML IV ×4 (07:22→21:28)
--- NOTE | 2019-02-06 07:27 | PM.PREOP ---
Pre-operative Note Interval Note History & Physical reviewed/Exam performed by Physician: Yes Changes to H&P: No
[2019-02-06] MEDS: CEFAZOLIN 2 GM/100 ML FROZ.PIGGY IV (08:00)
--- NOTE | 2019-02-06 08:41 | SUR.OPER ---
Lithotomy on padded OR bed, head on pillow, arms padded secured at sides. Legs secured in padded yellow fins stirrups.
[2019-02-06] MEDS: BUPIVACAINE 0.25% W/ EPI 30 ML VIAL INJ (09:05)
[2019-02-06] MEDS: BUPIVACAINE 0.5% W/ EPI (PF) VIAL 30 ML INJ (09:08)
[2019-02-06] MEDS: fentaNYL 100 MCG/2 ML INJ IV (11:00)
--- NOTE | 2019-02-06 11:26 | SUR.PHASEI ---
Report called to [facility].
[2019-02-06] MEDS: OXYCODONE/ACETAMINOPHEN 5/325 TABLET 1 TAB PO ×3 (14:18→23:46)
[2019-02-06] MEDS: diazePAM 5 MG TABLET PO ×2 (14:18→20:48)
--- NOTE | 2019-02-06 15:16 | PC.NURSE ---
received pt from pacu- vss and pt rates pain 2/10 declining pain rx at this time- lap sites x 3 to abd dry and intact- flores patent and pale and clear. tolerating diet well and no nausea, ivf continues at 100cc/h
[2019-02-06] MEDS: DOCUSATE 250 MG CAPSULE PO (20:49)
--- NOTE | 2019-02-06 20:57 | PC.NURSE ---
2100- Patient took her home medication thyroid and bupropion. Patient advised to no take any medication. Patient verbalized understanding.
[2019-02-06] MEDS: METOCLOPRAMIDE 10 MG/2 ML INJ IV (23:47)
[2019-02-07 00:03] VITALS: BP 127/70; PULSE 67; RESP 16; TEMP 37.2; O2SAT 97
--- NOTE | 2019-02-07 00:21 | PC.NURSE ---
Addendum entered by Angella Richard R.N. 02/07/19 06:20: Per Dr. Mccray's protocols, Flores and packing removed at 0610. Packing with 75-80 saturation, moderate amount of drainage on peripad. IVF stopped at 0615. Original Note: NOC Note: Pt C/O RLQ pain, cramping sensation, PRN percocet given, SCD's in place, flores cath patent.
[2019-02-07 04:53] VITALS: BP 106/59; PULSE 68; RESP 16; TEMP 36.8; O2SAT 93
[2019-02-07 05:04] LABS: Add Manual Diff / Slide Review NO; Basophils Absolute Auto 0 /uL (0-100); Eosinophils Absolute Auto 0 /uL (0-450); Hematocrit 37.2 % (36-46); Hemoglobin 12.7 g/dL (12.0-16.0); Lymphocytes Absolute Auto 500 /uL (1100-4500); Lymphocytes Percent Auto 3.9 % (25-40); Mean Corpuscular HGB Conc 34.1 % (30-36); Mean Corpuscular Hemoglobin 32.6 PG (26-34); Mean Corpuscular Volume 95.6 fL (80-100); Monocytes Absolute Auto 300 /uL (0-900); Monocytes Percent Auto 2.4 % (3-14); Neutrophils Absolute Auto 10900 /uL (1500-7000); Neutrophils Percent Auto 93.7 % (50-75); Platelet Count 208 X10^3/uL (150-400); Red Blood Cell Count 3.89 X10^6/uL (4.0-5.2); White Blood Cell Count 11.6 X10^3/uL (4.5-11.0)
[2019-02-07] MEDS: OXYCODONE/ACETAMINOPHEN 5/325 TABLET 1 TAB PO ×2 (07:09→12:56)
[2019-02-07 07:54] VITALS: BP 109/61; PULSE 60; RESP 16; TEMP 37.1; O2SAT 97
[2019-02-07] MEDS: DOCUSATE 250 MG CAPSULE PO (08:48)
[2019-02-07] MEDS: POTASSIUM CHLORIDE 20 MEQ TAB PO (08:48)
[2019-02-07] MEDS: buPROPion 100 MG TABLET PO (08:49)
[2019-02-07] MEDS: dilTIAZem CD 180 MG CAP 360 MG PO (08:49)
[2019-02-07] MEDS: LISINOPRIL 5 MG TABLET PO (08:49)
[2019-02-07] MEDS: diazePAM 5 MG TABLET PO ×2 (08:53→12:56)
[2019-02-07] MEDS: METOCLOPRAMIDE 10 MG/2 ML INJ IV (10:37)
--- NOTE | 2019-02-07 14:15 | PC.NURSE ---
PT DISCHARGED AFTER CLARIFYING OUT PT RX CHANGED FROM CODEINE TO OXYCODONE - REVIEWED AT LENGTH WITH BOTH PT AND SPOUSE
--- NOTE | 2019-02-07 16:21 | CM.IDA ---
Initial DCP Assessment Note: Pt is a 73 yo female, resident of [place], now POD#1 from surgery w/Dr Mccray PCP: Dr Kellen Berman: RAMÓN/Jeffry Reviewed chart, pt discussed in multidisciplinary rounds this morning. Dr Mccray has discharged the pt today, met w/pt and spouse briefly before DC, pt walking indp and eager to return home. No barriers to safe DC home. KANDACE Juarez
--- NOTE | 2019-02-17 08:21 | PM.GYNOP.1 ---
Operative Date/Time/Diagnoses Date of procedure: 02/06/19 Time of procedure: 10:20 Pre-op diagnosis: Uterine prolapse Cystocele Rectocele Post-op diagnosis: same Procedure & Clinicians Procedure: Procedures Operation Date: 02/06/19 07:45 Actual Procedures Side Surgeon p *Laparoscopic Assisted Vaginal Hysterectomy w/ bilateral salingo-oophorectomy,Anterior/Posterior Repair, Not Applicable Jeannine Mccray MD s Sacropinous ligament fixation Jeannine Mccray MD Indications: Third-degree Uterine prolapse Third-degree cystocele Third-degree rectocele Surgeon: Jeannine Mccray Human Resources Operations Specialist: Jr Gonzalez Anesthesia Type: General Operative Notes Findings: Six week size third-degree uterine prolapse Third-degree cystocele Third-degree rectocele Normal ovaries Normal liver, gallbladder, and appendix Tubes status post ligation bilaterally Closure Type: primary Specimen(s): left tube & ovary, right tube & ovary and uterus Applied: catheter Estimated blood loss (mL): 100 Blood products transfused: none Procedure in detail: The patient was taken to the operating room where she was placed in the dorsal supine position. After adequate general endotracheal anesthesia was achieved, she was placed in the dorsal lithotomy position, and prepped and draped in the usual sterile fashion. A time-out was performed. A bivalve speculum was placed into the vagina, and a single-tooth tenaculum was placed on the anterior lip of the cervix. The cervical os was sequentially dilated until the ZUMI uterine manipulator could pass easily into the endometrial cavity. The single-tooth tenaculum was removed from the anterior lip of the cervix, and the bivalve speculum was removed from the vagina. Attention was then turned to the abdomen where 6 mL of half percent Marcaine with epinephrine were injected in the umbilical fold. A 5 mm incision was made. The verees needle was placed into the peritoneal cavity, and its placement confirmed by aspiration and drop test. The abdominal cavity was insufflated with 2.8 L of CO2. The verees needle was removed, and a 5 mm trocar was placed without difficulty. Initial inspection of the pelvis revealed the findings noted above. 2 other incisions were made midway between the pubic symphysis and umbilicus 4 cm lateral to the midline. These were 5 mm incisions. 5 Two 5mm trocars were placed under direct visualization. The right tube and ovary were grasped with an atraumatic grasper. The infundibulopelvic ligament on the right side was cauterized and cut with plasma kinetic. The round ligament and broad ligament were cauterized and cut. This was continued to the level of the uterine arteries. This was repeated on the patient's left side. The insurance are removed from the abdomen. Attention was then turned to the vagina where the ZUMI uterine manipulator was removed from the uterus. The cervix was grasped with a 4 tooth tenaculum. 10 mL of quarter percent Marcaine with epinephrine were injected circumferentially around the cervix. The cervix was circumscribed. The bladder and rectum were dissected off the lower uterine segment and cervix with an open moistened Ray-Micha. The peritoneum was entered sharply with the Metzenbaum scissors anteriorly and a [place] placed. The peritoneum was entered posteriorly with the Metzenbaum scissors and the long weighted speculum was placed into the posterior cul-de-sac. The uterosacral cardinal ligament complexes were clamped, transected, and suture ligated with 0 Vicryl. These were attached to hemostat. The uterine arteries were clamped, transected, and suture ligated with 0 Vicryl. The uterus was handed off for specimen with the tubes and ovaries. The peritoneum was closed with a pursestring suture with 2-0 Vicryl. The vaginal cuff was closed with 0 Vicryl with a series of simple interrupted sutures. The tagged sutures were cut. 2 Allis clamps were placed at the apex of the cystocele. 6 mL of half percent Marcaine with epinephrine were injected and an incision was made with a #10 blade between the 2 Allis clamps. Wide Allis clamps were placed on the midline of the cystocele approximately 7. The mucosa was undermined using the Metzenbaum scissors and the mucosa incised in the midline moving the wide Allis clamps to the edges of the mucosa. The mucosa was dissected off the underlying fascia using an open moistened Ray-Micha and a #10 blade. The fascia was reapproximated with 0 Vicryl with a series of horizontal mattress sutures. The excess vaginal mucosa was excised. The mucosa was closed using simple interrupted sutures with 2-0 Vicryl including the underlying fascia to close the space. The weighted speculum was removed from the vagina. Allis clamps were placed at the mucocutaneous junction at the introitus. 6 mL of half percent Marcaine with epinephrine were injected. An incision was made with a #10 blade between the 2 Allis clamps, and a triangular piece of skin and underlying subcutaneous tissue was removed. Allis clamps were placed in the midline of the rectocele. 10 mL of half percent Marcaine with epinephrine were injected submucosally. The mucosa was undermined using the Metzenbaum scissors and the mucosa incised in the midline, moving the wide Allis clamps to the mucosal edges. The underlying fascia was dissected off of the mucosa using an open moistened Ray-Micha and a #10 blade. The sacral spinous ligament on the right side was identified and cleared. An 0 Vicryl suture on a Capio needle was placed into the sacral spinous ligament and then attached to the vaginal cuff without going through the mucosa. This was tagged with a hemostat. The fascia was reapproximated using 0 Vicryl with a series of horizontal mattress sutures. The excess vaginal mucosa was excised. The sacral spinous ligament fixation suture was tied down. The mucosa was closed using a series of simple interrupted sutures with 2-0 Vicryl including the underlying fascia to close the space. On the perineum 0 Vicryl was used to reapproximate the levator muscle. The subcutaneous layer was closed with 2-0 Vicryl. The skin was closed with 3-0 chromic in a subcuticular fashion. Hemostasis was achieved. A Betadine moistened vaginal pack was placed into the vagina. A rectal exam was done and there were no sutures palpable in the rectum. The urine was clear. Sponge, lap, and instrument counts were correct x-2. The patient tolerated the procedure well, was taken to PACU in stable condition. Complications: none Post-operative Condition: stable Disposition: PACU Plan for aftercare: To Acute Care after recovery
== END 2019-02-07 14:14 | disposition home or self-care (01) ==
LOC: OR 06:17 → AC 06:18 → ICU 10:58
PROVIDERS: PCP Student in an Organized Health Care Education/Training Program; Visit Provider Obstetrics & Gynecology
PROC: 0UT9FZZ Resection of Uterus, Via Natural or Artificial Opening With Percutaneous Endoscopic Assistance (ICD-10-PCS; CPT 58542; principal; 2019-02-06 07:45)
PROC: (CPT 58542; 2019-02-06 07:45)
DX: N81.3 Complete uterovaginal prolapse (principal); N81.6 Rectocele
CPT/HCPCS: 58542; 57282; 57260; 36415; 85025; 87797; J0690; J1100; J1885; J2405; J2704; J2765; J3010

== ENCOUNTER → 2019-04-03 09:33 | Outpatient (CLI) | payer MEDICARE, OTHER, SELFPAY ==
[2019-02-06 12:19] VITALS: BMI 23.8
== END ==
PROVIDERS: PCP Student in an Organized Health Care Education/Training Program; Visit Provider Student in an Organized Health Care Education/Training Program
DX: Z13.820 Encounter for screening for osteoporosis (principal); M85.851 Other specified disorders of bone density and structure, right thigh; Z78.0 Asymptomatic menopausal state; E07.9 Disorder of thyroid, unspecified; Z91.89 Other specified personal risk factors, not elsewhere classified; Z82.62 Family history of osteoporosis; Z87.891 Personal history of nicotine dependence
CPT/HCPCS: 77080

== ENCOUNTER → 2019-09-13 13:48 | Outpatient (CLI) | payer MEDICARE, OTHER, SELFPAY ==
[2019-02-06 12:19] VITALS: BMI 23.8
--- NOTE | 2019-09-13 | DI.MRI.S_ITS ---
PROCEDURE: MR SHOULDER LT WO CON INDICATIONS: IMPINGEMENT TECHNIQUE: Noncontrast oblique coronal T2 fast spin echo with fat saturation, oblique sagittal T1 spin echo and T2 fast spin echo with fat saturation, axial T1 spin echo and T2 fast spin echo with fat saturation through the shoulder. COMPARISON: None. FINDINGS: Image quality: Excellent. Rotator cuff: Mild supraspinatus tendinopathy. There is low grade articular and bursal surface fraying. The infraspinatus, teres minor and subscapularis tendons appear intact. No atrophy of the rotator cuff muscles. Bones and bursae: No bone marrow contusions or fractures. Severe hypertrophic acromioclavicular and glenohumeral joint degeneration. Acromion demonstrates conventional anatomy, without an os acromiale. Mild subacromial-subdeltoid bursitis. Capsule and soft tissues: Labrum: Chronic posterior and superior labral tear, with associated segmental osseous changes within the glenoid. Posterior subluxed appearance of the humeral head relative to the glenoid raising the possibility of microinstability. Long head of the biceps tendon intact. The rotator interval appears normal, without fibrosis. Coracohumeral ligament intact. IMPRESSION: Mild supraspinatus tendinopathy with low-grade articular and bursal surface fraying. No discrete tear identified Chronic posterior and superior labral tear. Posterior subluxed appearance of the humeral head relative to the glenoid raising the possibility of microinstability. 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 on 09/15/2019 at 9:45 Approved by: Derik Durham M.D. on 09/15/2019 at 9:53
== END ==
PROVIDERS: PCP Student in an Organized Health Care Education/Training Program; Referring Provider Orthopaedic Surgery; Visit Provider Orthopaedic Surgery
DX: M75.42 Impingement syndrome of left shoulder (principal); M19.012 Primary osteoarthritis, left shoulder; M75.52 Bursitis of left shoulder; S43.432A Superior glenoid labrum lesion of left shoulder, initial encounter; S43.492A Other sprain of left shoulder joint, initial encounter
CPT/HCPCS: 73221

== ENCOUNTER → 2020-01-27 16:50 | Outpatient (CLI) | payer MEDICARE, OTHER, SELFPAY ==
[2019-02-06 12:19] VITALS: BMI 23.8
--- NOTE | 2020-01-27 16:54 | DI.MG.S_ITS ---
BILATERAL DIGITAL SCREENING MAMMOGRAM 3D/2D WITH CAD: 01/27/2020 CLINICAL: Routine screening. Family history of breast cancer. Comparison is made to exams dated: 01/15/2019 mammogram, 01/14/2018 mammogram, 12/20/2017 mammogram, 06/26/2016 mammogram, 06/25/2015 mammogram, and 05/14/2014 mammogram - [facility]. The tissue of both breasts is extremely dense, which lowers the sensitivity of mammography. Current study was also evaluated with a Computer Aided Detection (CAD) system. There are benign vascular calcifications in both breasts. No significant masses, calcifications, or other findings are seen in either breast. There has been no significant interval change. IMPRESSION: BENIGN There is no mammographic evidence of malignancy. A 1 year screening mammogram is recommended. This exam was interpreted at Station ID: [id number]. NOTE: For mammograms, a report in lay terms will be sent to the patient. Approximately 15% of breast malignancies will not be visualized mammographically. In the management of a palpable breast mass, a negative mammogram must not discourage biopsy of a clinically suspicious lesion. Electronically Signed By: Lalit carrillo/yvan:01/28/2020 08:16:05 copy to: Jeannine Mccray letter sent: Normal Exam ACR BI-RADS Category 2: Benign Finding(s) 3342F
== END ==
PROVIDERS: PCP Student in an Organized Health Care Education/Training Program; Referring Provider Student in an Organized Health Care Education/Training Program; Visit Provider Student in an Organized Health Care Education/Training Program
DX: Z12.31 Encounter for screening mammogram for malignant neoplasm of breast (principal); Z80.3 Family history of malignant neoplasm of breast
CPT/HCPCS: 77063; 77067

== ENCOUNTER → 2020-01-30 13:10 | Outpatient (CLI) | payer MEDICARE, OTHER, SELFPAY ==
[2019-02-06 12:19] VITALS: BMI 23.8
--- NOTE | 2020-01-30 13:36 | DI.MRI.S_ITS ---
PROCEDURE: MR LUMBAR SPINE WO CON INDICATIONS: Dorsalgia, unspecified TECHNIQUE: Noncontrast sagittal T1 spin echo and T2 fast echo, sagittal STIR, axial T1 and T2 fast spin echo through the lumbar spine. In cases with scoliosis, additional coronal T2 fast spin echo may be performed. COMPARISON: [facility], , L-SPINE WITHOUT CONTRAST, 03/24/2015, 16:45. FINDINGS: Image quality: Excellent. Alignment and Curvature: Posterior fusion is present at L4-5. Previous anterolisthesis of L3 on L4 demonstrates anatomic alignment. There is unchanged trace retrolisthesis of L5 on S1. Bone Marrow: Marrow is of normal overall signal. Reactive endplate changes are present at L4-5. No acute vertebral body compression fractures. Spinal Cord: Conus medullaris terminates at the L2 level. Visualized cord demonstrates normal signal and size. Paraspinous Soft Tissues: No paravertebral masses. Discs: Moderate to severe desiccation is present throughout the lumbar spine most notable at L5-S1. L1-L2: No disc bulge, spinal stenosis or foraminal narrowing. No interval change. L2-L3: Mild disc bulge with minimal canal narrowing. No foraminal narrowing. Facet hypertrophy is present. Minimal interval progression. L3-L4: Mild disc bulge with severe spinal stenosis and canal compression. Fluid is present within the facet joints consistent with degenerative change. Severe left and moderate to severe right foraminal narrowing is present with facet and ligamentum flavum hypertrophy. L4-L5: Postsurgical changes are present. No spinal stenosis or foraminal narrowing. L5-S1: Postsurgical changes are present. No spinal stenosis. Moderate to severe bilateral foraminal narrowing with facet hypertrophy. IMPRESSION: 1. L4-5 posterior fusion with improved anatomic alignment at L4-5. 2. Multilevel degenerative changes most notably progressive at L3-4. Dictated by: Alicia Davila M.D. on 01/30/2020 at 16:34 Approved by: Alicia Davila M.D. on 01/30/2020 at 16:42
== END ==
PROVIDERS: PCP Student in an Organized Health Care Education/Training Program; Referring Provider Student in an Organized Health Care Education/Training Program; Visit Provider Orthopaedic Surgery
DX: M47.816 Spondylosis without myelopathy or radiculopathy, lumbar region (principal); M54.9 Dorsalgia, unspecified; Z98.1 Arthrodesis status
CPT/HCPCS: 72148

== ENCOUNTER → 2020-05-06 10:27 | Outpatient (CLI) | payer MEDICARE, OTHER, SELFPAY ==
[2019-02-06 12:19] VITALS: BMI 23.8
[2020-05-06 11:43] LABS: Add Manual Diff / Slide Review NO; Basophils Absolute Auto 100 /uL (0-100); Basophils Percent Auto 1.4 % (0-2); Eosinophils Absolute Auto 200 /uL (0-450); Hematocrit 42.7 % (36-46); Hemoglobin 14.1 g/dL (12.0-16.0); Lymphocytes Absolute Auto 1500 /uL (1100-4500); Lymphocytes Percent Auto 31.6 % (25-40); Mean Corpuscular HGB Conc 33.1 % (30-36); Mean Corpuscular Hemoglobin 31.4 PG (26-34); Mean Corpuscular Volume 94.9 fL (80-100); Monocytes Absolute Auto 300 /uL (0-900); Monocytes Percent Auto 6.5 % (3-14); Neutrophils Absolute Auto 2700 /uL (1500-7000); Neutrophils Percent Auto 55.5 % (50-75); Platelet Count 231 X10^3/uL (150-400); Red Cell Distribution Width 13.2 % (11.6-14.8); White Blood Cell Count 4.8 X10^3/uL (4.5-11.0)
[2020-05-06 11:56] LABS: BUN Creatinine Ratio 28.6 (6-22); Blood Urea Nitrogen 28 mg/dL (7-17); Calcium 9.3 mg/dL (8.4-10.2); Carbon Dioxide 33 mmol/L (22-32); Chloride 101 mmol/L (98-107); Estimated Glomerular Filt Rate 55.6 mL/min (>60); Glucose 89 mg/dL (80-110); HEMOLYSIS < 15 (0-50); Potassium 3.9 mmol/L (3.4-5.1); Sodium 138 mmol/L (137-145)
== END ==
PROVIDERS: PCP Student in an Organized Health Care Education/Training Program; Referring Provider Physician Assistant; Visit Provider Physician Assistant
DX: Z01.818 Encounter for other preprocedural examination (principal)
CPT/HCPCS: 36415; 80048; 85025; 93005; 93010

== ENCOUNTER → 2020-08-06 15:22 | Outpatient (CLI) | payer MEDICARE, OTHER, SELFPAY ==
[2019-02-06 12:19] VITALS: BMI 23.8
--- NOTE | 2020-08-06 | DI.RAD.S_ITS ---
PROCEDURE: XR LUMBAR SPINE 2-3V INDICATIONS: Lumbar Radiculopathy TECHNIQUE: 2 views of the lumbar spine were acquired. COMPARISON: [facility], , L-SPINE 2-3 VIEWS, 03/15/2015, 16:06. FINDINGS: Bones: 5 [id number] vertebrae are present. There is normal bony alignment established after posterior bilateral fusion procedures, 3 level on the left and 2 levels on the right. Interbody disc spacers are noted at L3-4 and L4-5. There is no evidence of device loosening or disruption.. No vertebral body compression fractures. No suspicious bony lesions. Soft tissues: Overlying bowel gas pattern is normal. No suspicious soft tissue calcifications. IMPRESSION: Normal anatomic alignment established after bilateral fusion, L3-4 on the right and L3-L4-L5 on the left. Source of new pain is not seen. There is moderately severe degenerative disc disease and facet osteoarthritis at L5-S1 which is not involved with the operative intervention. Dictated by: Gailndo Osborne M.D. on 08/06/2020 at 16:43 Approved by: Galindo Osborne M.D. on 08/06/2020 at 17:04
== END ==
PROVIDERS: PCP Student in an Organized Health Care Education/Training Program; Referring Provider Physician Assistant; Visit Provider Physician Assistant
DX: Z48.811 Encounter for surgical aftercare following surgery on the nervous system (principal); M51.17 Intervertebral disc disorders with radiculopathy, lumbosacral region; M47.27 Other spondylosis with radiculopathy, lumbosacral region; Z98.1 Arthrodesis status
CPT/HCPCS: 72100

== ENCOUNTER → 2020-09-03 07:26 | Outpatient (CLI) | payer MEDICARE, OTHER, SELFPAY ==
[2019-02-06 12:19] VITALS: BMI 23.8
[2020-09-03 08:54] LABS: Hematocrit 40.8 % (36-46); Hemoglobin 13.7 g/dL (12.0-16.0); Mean Corpuscular HGB Conc 33.6 % (30-36); Mean Corpuscular Hemoglobin 31.4 PG (26-34); Mean Corpuscular Volume 93.4 fL (80-100); Platelet Count 261 X10^3/uL (150-400); Red Blood Cell Count 4.37 X10^6/uL (4.0-5.2); Red Cell Distribution Width 14.4 % (11.6-14.8); White Blood Cell Count 5.2 X10^3/uL (4.5-11.0)
[2020-09-03 09:05] LABS: BUN Creatinine Ratio 28.6 (6-22); Blood Urea Nitrogen 26 mg/dL (7-17); Cholesterol 197 mg/dL (140-199); Estimated Glomerular Filt Rate > 60.0 mL/min (>60); HDL Cholesterol 74 mg/dL (40-60); LDL Cholesterol Calculated 110 mg/dL (<100); Triglycerides 64 mg/dL (35-150)
[2020-09-03 09:34] LABS: Free T4, Direct Thyroxine 0.89 ng/dL (0.78-2.19)
[2020-09-03 09:38] LABS: Vitamin D 25 Hydroxy (D3) 53.1 ng/mL (30.0-100.0)
[2020-09-03 09:53] LABS: Vitamin B12 897 pg/mL (239-931)
== END ==
PROVIDERS: PCP Student in an Organized Health Care Education/Training Program; Referring Provider Student in an Organized Health Care Education/Training Program; Visit Provider Student in an Organized Health Care Education/Training Program
DX: K51.20 Ulcerative (chronic) proctitis without complications (principal); E03.9 Hypothyroidism, unspecified; E55.9 Vitamin D deficiency, unspecified; Z78.9 Other specified health status; D64.9 Anemia, unspecified; E78.5 Hyperlipidemia, unspecified; I10 Essential (primary) hypertension
CPT/HCPCS: 36415; 80061; 82306; 82565; 82607; 84439; 84443; 84481; 84520; 85027

== ENCOUNTER → 2020-10-28 13:01 | Outpatient (CLI) | payer MEDICARE, OTHER, SELFPAY ==
[2019-02-06 12:19] VITALS: BMI 23.8
[2020-10-28 14:27] LABS: Appearance Urine UA CLEAR; Bilirubin Urine UA NEGATIVE (NEGATIVE); Color Urine UA YELLOW; Glucose Urine UA NEGATIVE (Negative); Ketones Urine UA NEGATIVE (NEGATIVE); Leukocyte Esterase Urine UA NEGATIVE (NEGATIVE); Nitrite Urine UA NEGATIVE (Negative); Occult Blood Urine UA NEGATIVE (Negative); Protein Urine UA NEGATIVE (Negative); Specific Gravity Urine UA 1.015 (1.000-1.035); Urobilinogen Urine UA 0.2 E.U./dL (0.2)
[2020-10-28 14:46] LABS: pH Urine UA 5.5 (4.5-8.0)
[2020-10-28 15:01] LABS: Bacteria Urine Few (2-10); Culture Indicated Urine Cult Not Indicated; RBC Urine 1-5/HPF (0-5/HPF); Squamous Epithelial Cell Urine 5-10 /HPF (0-5/HPF); WBC Urine 0-1/HPF (0-5/HPF)
== END ==
PROVIDERS: PCP Student in an Organized Health Care Education/Training Program; Referring Provider Obstetrics & Gynecology; Visit Provider Obstetrics & Gynecology
DX: R35.0 Frequency of micturition (principal)
CPT/HCPCS: 81001

== ENCOUNTER → 2020-11-11 15:36 | Outpatient (CLI) | payer MEDICARE, OTHER, SELFPAY ==
[2019-02-06 12:19] VITALS: BMI 23.8
[2020-11-11 17:27] LABS: Ferritin 97 ng/mL (11-264)
== END ==
PROVIDERS: PCP Student in an Organized Health Care Education/Training Program; Referring Provider Student in an Organized Health Care Education/Training Program; Visit Provider Student in an Organized Health Care Education/Training Program
DX: D64.9 Anemia, unspecified (principal); Z78.9 Other specified health status
CPT/HCPCS: 36415; 82728

== ENCOUNTER → 2020-12-14 08:32 | Outpatient (CLI) | payer MEDICARE, OTHER, SELFPAY ==
[2019-02-06 12:19] VITALS: BMI 23.8
[2020-12-14 11:09] LABS: Cholesterol 157 mg/dL (140-199); HDL Cholesterol 69 mg/dL (40-60); LDL Cholesterol Calculated 73 mg/dL (<100); Triglycerides 76 mg/dL (35-150)
== END ==
PROVIDERS: PCP Student in an Organized Health Care Education/Training Program; Referring Provider Student in an Organized Health Care Education/Training Program; Visit Provider Student in an Organized Health Care Education/Training Program
DX: E78.2 Mixed hyperlipidemia (principal)
CPT/HCPCS: 36415; 80061

== ENCOUNTER → 2020-12-14 08:36 | Outpatient (CLI) | payer MEDICARE, OTHER, SELFPAY ==
[2019-02-06 12:19] VITALS: BMI 23.8
--- NOTE | 2020-12-14 | DI.RAD.S_ITS ---
PROCEDURE: XR LUMBAR SPINE 2-3V INDICATIONS: Radiculopathy, lumbar region TECHNIQUE: 2 views of the lumbar spine were acquired. COMPARISON: [facility], [place], XR LUMBAR SPINE 2 OR 3 VIEWS, 02/11/2020, 10:00. [facility], [place], L-SPINE 2-3 VIEWS, 03/15/2015, 16:06. [facility], [place], XR LUMBAR SPINE 2-3V, 08/06/2020, 15:34. FINDINGS: Bones: 5 [id number] vertebrae are present. There is postsurgical fusion with intervertebral spacers from L3 through L5. There is trace retrolisthesis, 3 mm of L3 on L4 as well as 4 mm retrolisthesis of L5 on S1. Hardware demonstrates an appearance fractured pedicular screw at L5, similar to 02/11/2020 exam. There appears to be suspected interval removal of the more proximal portion of the screw since prior exam. However, this is poorly delineated secondary to obliquity of exam. Severe disc and foraminal narrowing is present L5-S1, unchanged. No vertebral body compression fractures. No suspicious bony lesions. Soft tissues: Overlying bowel gas pattern is normal. No suspicious soft tissue calcifications. IMPRESSION: 1. Postsurgical changes with stable appearance of fractured screw at L5, as described above. 2. Severe disc and foraminal narrowing are noted at L5-S1. Dictated by: Alicia Davila M.D. on 12/14/2020 at 10:27 Approved by: Alicia Davila M.D. on 12/14/2020 at 10:32
== END ==
PROVIDERS: PCP Student in an Organized Health Care Education/Training Program; Referring Provider Neurological Surgery; Visit Provider Neurological Surgery
DX: Z48.811 Encounter for surgical aftercare following surgery on the nervous system (principal); M54.16 Radiculopathy, lumbar region; M48.061 Spinal stenosis, lumbar region without neurogenic claudication; T84.89XA Other specified complication of internal orthopedic prosthetic devices, implants and grafts, initial encounter
CPT/HCPCS: 72100

== ENCOUNTER → 2021-02-11 12:07 | Outpatient (CLI) | payer MEDICARE, OTHER, SELFPAY ==
[2019-02-06 12:19] VITALS: BMI 23.8
--- NOTE | 2021-02-11 12:09 | DI.MG.S_ITS ---
BILATERAL DIGITAL SCREENING MAMMOGRAM 3D/2D WITH CAD: 02/11/2021 CLINICAL: Routine screening. Family history of breast cancer. Comparison is made to exams dated: 01/27/2020 mammogram, 01/15/2019 mammogram, and 12/20/2017 mammogram - [facility]. The tissue of both breasts is extremely dense, which lowers the sensitivity of mammography. Current study was also evaluated with a Computer Aided Detection (CAD) system. There are benign vascular calcifications in both breasts. No significant masses, calcifications, or other findings are seen in either breast. There has been no significant interval change. IMPRESSION: BENIGN There is no mammographic evidence of malignancy. A 1 year screening mammogram is recommended. This exam was interpreted at Station ID: [id number]. NOTE: For mammograms, a report in lay terms will be sent to the patient. Approximately 15% of breast malignancies will not be visualized mammographically. In the management of a palpable breast mass, a negative mammogram must not discourage biopsy of a clinically suspicious lesion. Electronically Signed By: Colten hamilton/yvan:02/11/2021 13:05:11 copy to: Jeannine Mccray letter sent: Normal Exam ACR BI-RADS Category 2: Benign Finding(s) [id number]
== END ==
PROVIDERS: PCP Student in an Organized Health Care Education/Training Program; Referring Provider Student in an Organized Health Care Education/Training Program; Visit Provider Obstetrics & Gynecology
DX: Z12.31 Encounter for screening mammogram for malignant neoplasm of breast (principal); Z80.3 Family history of malignant neoplasm of breast
CPT/HCPCS: 77063; 77067

== ENCOUNTER → 2021-03-03 16:06 | Outpatient (CLI) | payer MEDICARE, OTHER, SELFPAY ==
[2019-02-06 12:19] VITALS: BMI 23.8
--- NOTE | 2021-03-03 | DI.MRI.S_ITS ---
PROCEDURE: MR LUMBAR SPINE WO CON INDICATIONS: radiculopathy, lumbar region TECHNIQUE: Noncontrast sagittal T1 spin echo and T2 fast echo, sagittal STIR, axial T1 and T2 fast spin echo through the lumbar spine. In cases with scoliosis, additional coronal T2 fast spin echo may be performed. COMPARISON: [facility], , MR LUMBAR SPINE WO CON, 01/30/2020, 13:35. FINDINGS: Image quality: Excellent. Alignment and Curvature: There is posterior fusion at L3-5 compared to that fusion at L4-5 on prior exam is a limited. There is trace retrolisthesis of L3 on L4, previously noted as anterolisthesis. Bone Marrow: Marrow is of normal overall signal. There is increased T1 and T2 signal at the L1 vertebral body most consistent with hemangioma. No acute vertebral body compression fractures. Spinal Cord: Conus medullaris terminates at the L2 level. Visualized cord demonstrates normal signal and size. Paraspinous Soft Tissues: No paravertebral masses. Discs: Moderate to severe desiccation is present throughout the lumbar spine. L1-L2: No disc bulge, spinal stenosis or foraminal narrowing. No interval change. L2-L3: Mild disc bulge with minimal canal narrowing. No foraminal narrowing. Facet and ligamentum flavum hypertrophy are present. L3-L4: Postsurgical changes are present. No spinal stenosis, markedly improved compared to prior exam. There is severe left and moderate to severe right foraminal narrowing, similar versus questionably minimally improved with facet hypertrophy. L4-L5: Postsurgical changes are present. No spinal stenosis. No foraminal narrowing. No interval change. L5-S1: Postsurgical changes without spinal stenosis. Moderate to severe bilateral foraminal narrowing IMPRESSION: 1. Interval surgical revision, now fusion L3-5. 2. Markedly improved spinal stenosis at L3-4. 3. Multilevel foraminal narrowing, remaining most prominent at L3-4, L5-S1. Dictated by: Alicia Davila M.D. on 03/04/2021 at 12:37 Approved by: Alicia Davila M.D. on 03/04/2021 at 13:16
== END ==
PROVIDERS: PCP Student in an Organized Health Care Education/Training Program; Referring Provider Physician Assistant; Visit Provider Physician Assistant
DX: M54.16 Radiculopathy, lumbar region (principal); M48.061 Spinal stenosis, lumbar region without neurogenic claudication; M48.07 Spinal stenosis, lumbosacral region; Z98.1 Arthrodesis status
CPT/HCPCS: 72148

== ENCOUNTER → 2021-07-15 10:36 | Outpatient (CLI) | payer MEDICARE, OTHER, SELFPAY ==
[2019-02-06 12:19] VITALS: BMI 23.8
== END ==
PROVIDERS: PCP Student in an Organized Health Care Education/Training Program; Referring Provider Student in an Organized Health Care Education/Training Program; Visit Provider Student in an Organized Health Care Education/Training Program
DX: Z78.0 Asymptomatic menopausal state (principal); Z13.820 Encounter for screening for osteoporosis; M85.89 Other specified disorders of bone density and structure, multiple sites
CPT/HCPCS: 77080

== ENCOUNTER → 2021-12-21 11:34 | Outpatient (CLI) | payer MEDICARE, OTHER, SELFPAY ==
[2019-02-06 12:19] VITALS: BMI 23.8
[2021-12-21 13:38] LABS: Alanine Aminotransferase 17 IU/L (<35); Albumin 4.5 g/dL (3.5-5.0); Albumin Globulin Ratio 1.7 (1.0-2.8); Alkaline Phosphatase 74 U/L (38-126); Aspartate Aminotransferase 32 IU/L (14-36); BUN Creatinine Ratio 27.8 (6-22); Bilirubin Total 0.4 mg/dL (0.2-1.3); Blood Urea Nitrogen 27 mg/dL (7-17); Calcium 9.5 mg/dL (8.4-10.2); Carbon Dioxide 27 mmol/L (22-32); Chloride 100 mmol/L (98-107); Estimated Glomerular Filt Rate > 60 mL/min (>60); Globulin 2.6 g/dL (1.7-4.1); Glucose 121 mg/dL (80-110); HEMOLYSIS 16 (0-50); Potassium 4.3 mmol/L (3.4-5.1); Sodium 139 mmol/L (137-145); Total Protein 7.1 g/dL (6.3-8.2)
[2021-12-21 14:06] LABS: Free T3, Triiodothyronine Free 5.02 pg/mL (2.77-5.27)
[2021-12-21 14:20] LABS: Thyroid Stimulating Hormone 3.09 uIU/mL (0.47-4.68)
[2021-12-21 19:32] LABS: Free T4, Direct Thyroxine 0.96 ng/dL (0.78-2.19)
== END ==
PROVIDERS: PCP Student in an Organized Health Care Education/Training Program; Referring Provider Student in an Organized Health Care Education/Training Program; Visit Provider Student in an Organized Health Care Education/Training Program
DX: E03.9 Hypothyroidism, unspecified (principal); I10 Essential (primary) hypertension; Z79.899 Other long term (current) drug therapy
CPT/HCPCS: 36415; 80053; 84439; 84443; 84481

== ENCOUNTER → 2022-02-11 10:29 | Outpatient (CLI) | payer MEDICARE, OTHER, SELFPAY ==
[2019-02-06 12:19] VITALS: BMI 23.8
--- NOTE | 2022-02-11 10:31 | DI.MG.S_ITS ---
BILATERAL DIGITAL SCREENING MAMMOGRAM 3D/2D WITH CAD: 02/11/2022 CLINICAL: Routine screening. Family history of breast cancer. Comparison is made to exams dated: 02/11/2021 mammogram, 01/27/2020 mammogram, and 01/15/2019 mammogram - [facility]. Both breasts are heterogeneously dense, which may obscure small masses (category c / 51-75% glandular tissue). Current study was also evaluated with a Computer Aided Detection (CAD) system. There are benign vascular calcifications in both breasts. No significant masses, calcifications, or other findings are seen in either breast. There has been no significant interval change. IMPRESSION: BENIGN There is no mammographic evidence of malignancy. A 1 year screening mammogram is recommended. Based on the Tyrer Cuzick model (a risk assessment model) the patient's lifetime risk is 9.1% and her 10 year risk is 9.1%. According to the ACR, ACS, and NCCN guidelines, an annual breast MRI exam along with mammogram is recommended if the patient's lifetime risk is 20% or greater. This exam was interpreted at Station ID: [id number]. NOTE: For mammograms, a report in lay terms will be sent to the patient. Approximately 15% of breast malignancies will not be visualized mammographically. In the management of a palpable breast mass, a negative mammogram must not discourage biopsy of a clinically suspicious lesion. Electronically Signed By: Colten hamilton/yvan:02/13/2022 10:25:59 copy to: Jeannine Mccray letter sent: Normal Exam ACR BI-RADS Category 2: Benign Finding(s) [id number]
== END ==
PROVIDERS: PCP Student in an Organized Health Care Education/Training Program; Referring Provider Student in an Organized Health Care Education/Training Program; Visit Provider Student in an Organized Health Care Education/Training Program
DX: Z12.31 Encounter for screening mammogram for malignant neoplasm of breast (principal); Z80.3 Family history of malignant neoplasm of breast
CPT/HCPCS: 77063; 77067

== ENCOUNTER → 2022-12-12 10:21 | Outpatient (CLI) | payer MEDICARE, SELFPAY ==
[2019-02-06 12:19] VITALS: BMI 23.8
[2022-12-12 14:30] LABS: Add Manual Diff / Slide Review NO; Basophils Absolute Auto 100 /uL (0-100); Basophils Percent Auto 0.9 % (0-2); Eosinophils Absolute Auto 100 /uL (0-450); Eosinophils Percent Auto 1.2 % (2-4); Hematocrit 39.4 % (36-46); Hemoglobin 13.1 g/dL (12.0-16.0); Lymphocytes Absolute Auto 2100 /uL (1100-4500); Lymphocytes Percent Auto 31.6 % (25-40); Mean Corpuscular HGB Conc 33.2 % (30-36); Mean Corpuscular Hemoglobin 30.9 PG (26-34); Mean Corpuscular Volume 93.1 fL (80-100); Monocytes Absolute Auto 500 /uL (0-900); Monocytes Percent Auto 7.6 % (3-14); Neutrophils Absolute Auto 3900 /uL (1500-7000); Neutrophils Percent Auto 58.7 % (50-75); Platelet Count 265 X10^3/uL (150-400); Red Blood Cell Count 4.23 X10^6/uL (4.0-5.2); Red Cell Distribution Width 13.8 % (11.6-14.8); White Blood Cell Count 6.7 X10^3/uL (4.5-11.0)
[2022-12-12 14:53] LABS: HEMOLYSIS < 15 (0-50)
[2022-12-12 14:57] LABS: Alanine Aminotransferase 18 IU/L (<35); Albumin 4.3 g/dL (3.5-5.0); Albumin Globulin Ratio 1.7 (1.0-2.8); Alkaline Phosphatase 79 U/L (38-126); Aspartate Aminotransferase 29 IU/L (14-36); BUN Creatinine Ratio 22.1 (6-22); Bilirubin Total 0.5 mg/dL (0.2-1.3); Blood Urea Nitrogen 23 mg/dL (7-17); Calcium 9.7 mg/dL (8.4-10.2); Carbon Dioxide 28 mmol/L (22-32); Chloride 102 mmol/L (98-107); Cholesterol 168 mg/dL (140-199); Estimated Glomerular Filt Rate 56 mL/min (>60); Globulin 2.6 g/dL (1.7-4.1); Glucose 102 mg/dL (80-110); HDL Cholesterol 82 mg/dL (40-60); HEMOLYSIS < 15 (0-50); Iron 74 ug/dL (37-170); LDL Cholesterol Calculated 69 mg/dL (<100); Potassium 4.2 mmol/L (3.4-5.1); Sodium 137 mmol/L (137-145); Total Protein 6.9 g/dL (6.3-8.2); Triglycerides 85 mg/dL (35-150)
[2022-12-12 15:08] LABS: Percent Iron Saturation 23 % (15-50); Total Iron Binding Capacity 328 ug/dL (265-497); Transferrin 247 mg/dL (206-381)
[2022-12-12 15:20] LABS: Free T3, Triiodothyronine Free 6.17 pg/mL (2.77-5.27); Free T4, Direct Thyroxine 1.07 ng/dL (0.78-2.19)
[2022-12-12 15:32] LABS: Ferritin 71 ng/mL (11-264)
[2022-12-12 15:33] LABS: Thyroid Stimulating Hormone 0.551 uIU/mL (0.47-4.68)
[2022-12-12 15:46] LABS: Vitamin B12 > 1000 pg/mL (239-931)
== END ==
PROVIDERS: PCP Family Medicine; Referring Provider Family Medicine; Visit Provider Family Medicine
DX: D64.9 Anemia, unspecified (principal); E03.9 Hypothyroidism, unspecified; E78.5 Hyperlipidemia, unspecified; F41.1 Generalized anxiety disorder; I10 Essential (primary) hypertension
CPT/HCPCS: 36415; 80053; 80061; 82607; 82728; 83540; 83550; 84439; 84443; 84481; 85025

== ENCOUNTER → 2023-01-23 12:20 | Outpatient (CLI) | payer MEDICARE, SELFPAY ==
[2019-02-06 12:19] VITALS: BMI 23.8
[2023-01-23 15:22] LABS: Add Manual Diff / Slide Review NO; Basophils Absolute Auto 100 /uL (0-100); Basophils Percent Auto 0.8 % (0-2); Eosinophils Absolute Auto 100 /uL (0-450); Eosinophils Percent Auto 1.2 % (2-4); Hematocrit 41.4 % (36-46); Hemoglobin 13.8 g/dL (12.0-16.0); Lymphocytes Absolute Auto 1600 /uL (1100-4500); Lymphocytes Percent Auto 22.2 % (25-40); Mean Corpuscular HGB Conc 33.3 % (30-36); Mean Corpuscular Hemoglobin 30.8 PG (26-34); Mean Corpuscular Volume 92.4 fL (80-100); Monocytes Absolute Auto 500 /uL (0-900); Monocytes Percent Auto 7.4 % (3-14); Neutrophils Absolute Auto 5000 /uL (1500-7000); Neutrophils Percent Auto 68.4 % (50-75); Platelet Count 285 X10^3/uL (150-400); Red Blood Cell Count 4.48 X10^6/uL (4.0-5.2); Red Cell Distribution Width 13.7 % (11.6-14.8); White Blood Cell Count 7.3 X10^3/uL (4.5-11.0)
[2023-01-23 16:21] LABS: Alanine Aminotransferase 19 IU/L (<35); Albumin 4.4 g/dL (3.5-5.0); Albumin Globulin Ratio 1.7 (1.0-2.8); Alkaline Phosphatase 90 U/L (38-126); Aspartate Aminotransferase 28 IU/L (14-36); BUN Creatinine Ratio 20.2 (6-22); Bilirubin Total 0.3 mg/dL (0.2-1.3); Blood Urea Nitrogen 18 mg/dL (7-17); Calcium 9.9 mg/dL (8.4-10.2); Carbon Dioxide 26 mmol/L (22-32); Chloride 102 mmol/L (98-107); Estimated Glomerular Filt Rate > 60 mL/min (>60); Globulin 2.6 g/dL (1.7-4.1); Glucose 93 mg/dL (80-110); HEMOLYSIS < 15 (0-50); Potassium 3.6 mmol/L (3.4-5.1); Sodium 139 mmol/L (137-145)
[2023-01-23 16:38] LABS: Free T3, Triiodothyronine Free 5.37 pg/mL (2.77-5.27); Free T4, Direct Thyroxine 1.44 ng/dL (0.78-2.19)
[2023-01-23 17:09] LABS: Thyroid Stimulating Hormone < 0.015 uIU/mL (0.47-4.68)
== END ==
PROVIDERS: PCP Family Medicine; Referring Provider Family Medicine; Visit Provider Family Medicine
DX: E78.5 Hyperlipidemia, unspecified (principal); I10 Essential (primary) hypertension; E03.9 Hypothyroidism, unspecified
CPT/HCPCS: 36415; 80053; 84439; 84443; 84481; 85025

== ENCOUNTER 2023-01-23 17:11 | Emergency (ER) | payer MEDICARE, SELFPAY ==
[2019-02-06 12:19] VITALS: BMI 23.8
[2023-01-23 17:14] VITALS: BP 144/79; PULSE 70; RESP 16; TEMP 36.4; O2SAT 98; BMI 24.7
[2023-01-23 18:15] VITALS: BP 140/70; PULSE 72; RESP 18; O2SAT 98
--- NOTE | 2023-01-23 18:17 | ED_ITS ---
HPI - Female Genitourinary General Chief complaint: Urogenital-Female Stated complaint: unable to void Time Seen by Provider: 01/23/23 17:59 Source: patient Mode of arrival: Ambulatory History of Present Illness HPI Narrative: Patient is a 77-year-old female history of hypothyroid hyperlipidemia hypertension presenting today with decreased urine output. She reports that she is had some right-sided flank pain ongoing for a couple weeks it is constant in nature. She sometimes feel nauseous. 1 time she felt pain radiating to her groin but mostly she feels like it is under her ribs. She is not taken Tylenol or Motrin for it. She has been drinking fluids. She reports that she urinated this morning however despite drinking at least 44 oz of water she has not urinated today. Bladder scan by nursing staff shows about 250 cc. She had blood work done by PCP today which does not show any electrolyte or renal dysfunction. She saw PCP about this ongoing right-sided hand an outpatient CT is ordered then she would outpatient blood work. She is no abdominal pain now she feels like she is thirsty and dry. Related Data Home Medications Medication Instructions Recorded Confirmed taurine 500 mg capsule 500 mg PO DAILY 09/09/19 01/23/23 ascorbic acid (vitamin C) 500 mg mg PO 12/12/22 01/23/23 capsule calcium [calcium citrate] PO 12/12/22 01/23/23 cholecalciferol (vitamin D3) 50 100 mcg PO DAILY 12/12/22 01/23/23 mcg (2,000 unit) capsule coenzyme Q10 [Ultra CoQ10] PO 12/12/22 01/23/23 curcumin-phosphatidylcholine 500 1,000 mg PO 12/12/22 01/23/23 mg capsule garlic extract PO 12/12/22 01/23/23 iodine PO 12/12/22 01/23/23 lutein 20 mg tablet 20 mg PO DAILY 12/12/22 01/23/23 magnesium citrate,mag oxide PO 12/12/22 01/23/23 mecobalamin (vitamin B12) 5,000 mcg PO .week 12/12/22 01/23/23 mcg disintegrating tablet multivitamin (Daily Multi-Vitamin 1 tab PO DAILY 12/12/22 01/23/23 tablet) omega-3 fatty acids [Super Twin PO 12/12/22 01/23/23 EPA-DHA] vitamin K2 PO 12/12/22 01/23/23 Previous Rx's Medication Instructions Recorded hydrocortisone 2.5 % topical cream 1 applictn topical TID PRN rash 10/24/17 #30 grams acyclovir 400 mg tablet See Rx Instructions .Route 12/19/19 .COMPLEX PRN HSV #30 tabs progesterone micronized 100 mg See Rx Instructions .Route 07/04/22 capsule .COMPLEX #30 caps tramadol 50 mg tablet 25 - 50 mg (0.5 - 1 x 50 mg) PO 07/24/22 BID PRN pain #45 tabs diltiazem HCl 180 mg capsule,24 360 mg (2 x 180 mg) PO QDAY #180 08/02/22 hr,extended release (Tiazac) caps diazepam 2 mg tablet 2 mg PO TID PRN anxiety #90 tabs 12/12/22 diazepam 5 mg tablet 5 mg PO TID PRN anxiety #60 tabs 12/12/22 lisinopril 5 mg tablet 5 mg PO QDAY #90 tabs 12/12/22 pravastatin 20 mg tablet 20 mg PO BEDTIME #90 tabs 12/12/22 thyroid (pork) 60 mg tablet See Rx Instructions PO SEE 12/12/22 ([place] Thyroid) INSTRUCTIONS #110 tabs estradiol 10 mcg vaginal tablet 10 mcg vaginal 2XW #24 tabs 12/21/22 potassium chloride 10 mEq 20 meq (2 x 10 mEq) PO DAILY #180 01/10/23 tablet,extended release tabs Allergies Allergy/AdvReac Type Severity Reaction Status Date / Time diclofenac [DICLOFENAC] Allergy Severe Hives, Verified 01/23/23 17:24 fever, very sick, hospitalized Patient History Medical History Nephrolithiasis Menopausal and perimenopausal disorder History of iron deficiency (2012) Sleep disorder, shift work Arthritis of knee Lumbar spinal stenosis (2015) Fractures (1985) Alopecia Ovarian cyst (1982) Herpes simplex (~1979) Frequent UTI (2012) Lactose intolerance Ulcerative colitis (1986) History of thyroid cyst (1973) Hypothyroidism (2012) Colon polyps (2009) Cataract (2015) Chicken pox (1952) Measles (~1952) Mumps (~1952) Rubella (1952) Chronic back pain (1983) Gout (1999) Anxiety Depression Hyperlipidemia Hypertension (~1979) Osteoarthritis Family history of malignant neoplasm of breast (05/13/14) History of colon polyps Surgical History History of laparoscopic-assisted vaginal hysterectomy (~02/06/19) History of cosmetic surgery (1997) Anesthesia History of spinal surgery (05/17/15) History of cosmetic surgery (01/14/15) History of carpal tunnel release (01/05/15) History of left knee surgery (2011) History of left knee surgery (2009) History of right knee surgery (2008) History of surgery (1988) History of surgery (1985) History of thyroidectomy (1973) History of knee replacement (03/2012) Status post ovarian cystectomy (1982) Status post tonsillectomy and adenoidectomy History of third molar tooth extraction Status post tubal ligation (1983) Family History Brother Age: 74 Diabetes mellitus Melanoma Father Alcoholism Paget's disease of bone at multiple sites Grandfather CAD (coronary artery disease) Heart disease Hypertension Stroke Grandmother Dementia Absence of kidney Mother Age: 99 Hypertension Hyperlipidemia Stroke Breast cancer Grandmother Type 1 diabetes mellitus Grandfather Aspiration into airway Sister Meningitis Sister Type 1 diabetes mellitus Substance Use Type: does not use Exam Initial Vital Signs Initial Vital Signs: Vital Signs Temperature 97.6 F 01/23/23 17:14 Pulse Rate 70 01/23/23 17:14 Respiratory Rate 16 01/23/23 17:14 Blood Pressure 144/79 H 01/23/23 17:14 Pulse Oximetry 98 01/23/23 17:14 Oxygen Delivery Method Room Air 01/23/23 17:14 GENERAL: Alert pleasant 77-year-old female and in no acute distress. HEENT: Head atraumatic,EOMI, pupils reactive, face symmetric, moist mucous membranes CARDIOVASCULAR: Regular rate and rhythm without murmurs, rubs or gallops. RESPIRATORY: Breath sounds equal bilaterally, no wheezes rales or rhonchi. ABDOMEN: Soft, nontender. Normoactive bowel sounds all 4 quadrants. No guarding or rebound. Negative Quintero's sign : Minimal right CVA tenderness EXTREMITIES: Normal range of motion, no clubbing or edema. Neurovascularly intact NEUROLOGICAL: Alert and oriented x4.Normal gait and speech. SKIN: Warm, dry, no laceration, no petechiae, no rashes or lesions. Course Orders Ordered: ED Orders 01/23/23 18:25 CT kidney ureter bladder (KUB) Stat Vital Signs Vital signs: Vital Signs - 8 hr 01/23/23 17:14 01/23/23 18:15 Temperature 97.6 F Pulse Rate 70 72 Respiratory Rate 16 18 Blood Pressure 144/79 H 140/70 Pulse Oximetry 98 98 Oxygen Delivery Method Room Air Room Air MDM - Female Genitourinary Lab Data Labs: Urine Dip Bedside Urine Glucose Negative Bedside Urine Bilirubin - Negative Bedside Urine Ketone - Negative Urine Specific [place] 1.005 Bedside Urine Occult Blood - Negative Bedside Urine pH 6 Bedside Urine Protein - Negative Bedside Urine Urobilinogen - Negative Bedside Urine Nitrite - Negative Bedside Urine Leukocytes - Negative Esterase Imaging Data CT scan - abdomen/pelvis: Radiologist's Impression: PROCEDURE: CT KIDNEY URETER BLADDER (KUB) INDICATIONS: right flank pain TECHNIQUE: Axial sections were acquired from the lung bases to the pubic symphysis. Coronal and sagittal reformats were performed. For radiation dose reduction, the following was used: automated exposure control, adjustment of mA and/or kV according to patient size. COMPARISON: None. FINDINGS: Image quality: Excellent. Lung bases: Unremarkable. Heart: No significant findings. URINARY: Right Kidney: Nonobstructing stone in lower pole right kidney is seen measures 5 mm in size and 930 Hounsfield unit in density. There is prominence of right renal collecting system extending to the level of right UVJ. No obstructing stone is noted. Right Ureter: No hydroureter. No ureteral stone is seen. Left Kidney: No stones or hydronephrosis. 1.3 x 1.4 cm slightly hyperdense structure is noted involving lateral cortex of upper to midpole left kidney series 2, image 30. Left Ureter: No hydroureter. Bladder: Normal wall thickness. No stones. ABDOMEN: Liver: Unremarkable. Gallbladder: Gallbladder is contracted and shows no gross abnormality. Biliary ducts: Unremarkable. Pancreas: Unremarkable. Spleen: Unremarkable. Adrenal Glands: Unremarkable. Stomach and Bowel: There is no bowel obstruction. No abnormal bowel wall thickening or mesenteric fat stranding. Sigmoid diverticulosis is seen without sigmoid colon wall thickening a pericolonic fat stranding. No abscess collection. Peritoneum: No abnormal intraperitoneal fluid. No free air. Ventral Wall: No hernia. Abdominal Nodes: No enlarged retroperitoneal or mesenteric lymph nodes. Vessels: Aorta and inferior vena cava are normal in size. PELVIS: Pelvic Organs: Unremarkable. Pelvic Nodes: Unremarkable. Miscellaneous: Small bilateral inguinal hernia are seen containing fat only. Bones: No suspicious intraosseous lesion. No acute vertebral body compression fracture. Prior fusion of L3 through L5 level is seen. Chronic appearing superior endplate compression deformity at L3 level is also noted. IMPRESSION: 1. Nonobstructing stones seen in lower pole right kidney as above. Mild right- sided hydronephrosis without obstructing renal stone or ureteral stone. Focal narrowing at right UPJ concerning for stenosis suggest urological correlation. No left-sided stones or hydronephrosis. Normal appearing urinary bladder. 2. Incidentally noted of a 1.3 x 1.4 cm slightly hyperdense structure in upper to midpole left kidney lateral cortex and may represent hyperdense cyst or hemorrhagic cyst. Consider outpatient ultrasound for follow-up. 3. No bowel obstruction or abnormal bowel wall thickening. Sigmoid diverticulosis without CT evidence of acute diverticulitis. No abscess collection. No free fluid or free air. Dictated by: Oj Collazo M.D. on 01/23/2023 at 18:46 MDM Narrative Medical decision making narrative: Patient 77-year-old female who presents with ongoing right-sided pain for a couple of weeks with decreased urine output today. She actually had blood work just a few hours ago she would no electrolyte abnormality no RACHEL no anemia or l eukocytosis. CT today does show kidney stones without ureteral stone. However she does have some narrowing of her ureter at UPJ and she has some mild right hydronephrosis without an obstructing stone. She was able to urinate a couple of times in the ED just with p.o. intake. No evidence of a UTI. She says this ongoing issue for a couple of weeks without evidence of RACHEL. Appropriate for outpatient follow-up. Instructed her to follow-up with urology. They are familiar with Dr. Shields and Dr. Sena. PCP is involved and has actually ordered an outpatient CT. At this time recommend [id number] pain medication and control no need for any further workup. Discharge Plan Departure Patient Disposition: Home Clinical Impression: Hydronephrosis of right kidney Instructions: DI for Kidney Stones Activity Restrictions/Additional Instructions: *You have been diagnosed with hydronephrosis *What to do: You do have kidney stones in your right kidney but they are not causing you problems. You do have some narrowing in your ureter. At this time I do recommend that you follow-up with urology you need a referral probably from her PCP. Her blood work is overall reassuring you have urinated couple of times there is no evidence of infection. *Continue to take medications as directed Motrin 600 mg every 8 hours if needed for [id number] pain *Follow up with your primary care provider in 2-3 days or call [phone] *Return to ER if you should have increasing pain nausea vomiting or any new, worsening or concerning symptoms Prescriptions: No Action hydrocortisone 2.5 % cream 1 applictn TOP TID PRN (Reason: rash) Qty: 30 1RF Rx Instructions: apply sparingly to affected area up to three times daily as needed for rash acyclovir 400 mg tablet See Rx Instructions .ROUTE .COMPLEX PRN (Reason: HSV) Qty: 30 1RF Dose Instruction: TAKE 1 TABLET BY MOUTH THREE TIMES DAILY Rx Instructions: TAKE 1 TABLET BY MOUTH THREE TIMES DAILY PRN; progesterone micronized 100 mg capsule See Rx Instructions .ROUTE .COMPLEX Qty: 30 11RF Dose Instruction: TAKE 1 CAPSULE BY MOUTH EVERY MORNING Rx Instructions: TAKE 1 CAPSULE BY MOUTH EVERY MORNING diltiazem HCl [Tiazac] 180 mg capsule,extended release 24 hr 360 mg PO QDAY Qty: 180 3RF estradiol 10 mcg tablet 10 mcg vaginal 2XW Qty: 24 3RF potassium chloride 10 mEq tablet extended release 20 meq PO DAILY MDD 40 mEq Qty: 180 0RF taurine 500 mg capsule 500 mg PO DAILY tramadol 50 mg tablet 25 - 50 mg PO BID PRN (Reason: pain) Qty: 45 5RF Hold Instructions: 1-2 tabs TID, max 3/day, #90 Rx Instructions: Exempt vitamin K2 PO cholecalciferol (vitamin D3) 50 mcg (2,000 unit) capsule 100 mcg PO DAILY ascorbic acid (vitamin C) 500 mg capsule PO mecobalamin (vitamin B12) 5,000 mcg tablet,disintegrating PO .week multivitamin [Daily Multi-Vitamin] Tablet 1 tab PO DAILY magnesium citrate,mag oxide PO lutein 20 mg tablet 20 mg PO DAILY Rx Instructions: give with meal/snack garlic extract PO omega-3 fatty acids [Super Twin EPA-DHA] PO Rx Instructions: 300 mg curcumin-phosphatidylcholine 500 mg capsule 1,000 mg PO coenzyme Q10 [Ultra CoQ10] PO calcium [calcium citrate] PO iodine PO diazepam 5 mg tablet 5 mg PO TID PRN (Reason: anxiety) Qty: 60 0RF Hold Instructions: change indication to anxiety diazepam 2 mg tablet 2 mg PO TID PRN (Reason: anxiety) Qty: 90 1RF Rx Instructions: Patient is currently transitioning to this dose from 5 mg lisinopril 5 mg tablet 5 mg PO QDAY Qty: 90 3RF pravastatin 20 mg tablet 20 mg PO BEDTIME Qty: 90 3RF [place] Thyroid 60 mg tablet See Rx Instructions PO SEE INSTRUCTIONS Qty: 110 1RF Dose Instruction: 60mg 5x/week, 120mg 2x/week PO SEE INSTRUCTIONS; Rx Instructions: 60mg 5x/week, 120mg 2x/week PO Referrals: Rigoberto Coello DO [Primary Care Provider] - Stand Alone Forms: Patient Portal/API
--- NOTE | 2023-01-23 18:22 | PC.NURSE ---
Pt roomed at 1815.
--- NOTE | 2023-01-23 18:25 | DI.CT.S_ITS ---
PROCEDURE: CT KIDNEY URETER BLADDER (KUB) INDICATIONS: right flank pain TECHNIQUE: Axial sections were acquired from the lung bases to the pubic symphysis. Coronal and sagittal reformats were performed. For radiation dose reduction, the following was used: automated exposure control, adjustment of mA and/or kV according to patient size. COMPARISON: None. FINDINGS: Image quality: Excellent. Lung bases: Unremarkable. Heart: No significant findings. URINARY: Right Kidney: Nonobstructing stone in lower pole right kidney is seen measures 5 mm in size and 930 Hounsfield unit in density. There is prominence of right renal collecting system extending to the level of right UVJ. No obstructing stone is noted. Right Ureter: No hydroureter. No ureteral stone is seen. Left Kidney: No stones or hydronephrosis. 1.3 x 1.4 cm slightly hyperdense structure is noted involving lateral cortex of upper to midpole left kidney series 2, image 30. Left Ureter: No hydroureter. Bladder: Normal wall thickness. No stones. ABDOMEN: Liver: Unremarkable. Gallbladder: Gallbladder is contracted and shows no gross abnormality. Biliary ducts: Unremarkable. Pancreas: Unremarkable. Spleen: Unremarkable. Adrenal Glands: Unremarkable. Stomach and Bowel: There is no bowel obstruction. No abnormal bowel wall thickening or mesenteric fat stranding. Sigmoid diverticulosis is seen without sigmoid colon wall thickening a pericolonic fat stranding. No abscess collection. Peritoneum: No abnormal intraperitoneal fluid. No free air. Ventral Wall: No hernia. Abdominal Nodes: No enlarged retroperitoneal or mesenteric lymph nodes. Vessels: Aorta and inferior vena cava are normal in size. PELVIS: Pelvic Organs: Unremarkable. Pelvic Nodes: Unremarkable. Miscellaneous: Small bilateral inguinal hernia are seen containing fat only. Bones: No suspicious intraosseous lesion. No acute vertebral body compression fracture. Prior fusion of L3 through L5 level is seen. Chronic appearing superior endplate compression deformity at L3 level is also noted. IMPRESSION: 1. Nonobstructing stones seen in lower pole right kidney as above. Mild right-sided hydronephrosis without obstructing renal stone or ureteral stone. Focal narrowing at right UPJ concerning for stenosis suggest urological correlation. No left-sided stones or hydronephrosis. Normal appearing urinary bladder. 2. Incidentally noted of a 1.3 x 1.4 cm slightly hyperdense structure in upper to midpole left kidney lateral cortex and may represent hyperdense cyst or hemorrhagic cyst. Consider outpatient ultrasound for follow-up. 3. No bowel obstruction or abnormal bowel wall thickening. Sigmoid diverticulosis without CT evidence of acute diverticulitis. No abscess collection. No free fluid or free air. Dictated by: Oj Collazo M.D. on 01/23/2023 at 18:46 Approved by: Oj Collazo M.D. on 01/23/2023 at 18:53
== END 2023-01-23 19:45 | disposition home or self-care (01) ==
PROVIDERS: Emergency Provider Emergency Medicine; PCP Family Medicine
DX: N13.30 Unspecified hydronephrosis (principal); R10.9 Unspecified abdominal pain; E03.9 Hypothyroidism, unspecified; I10 Essential (primary) hypertension; E78.5 Hyperlipidemia, unspecified
CPT/HCPCS: 36415; 51798; 74176; 80053; 81003; 84439; 84443; 84481; 85025; 99282; 99284

== ENCOUNTER → 2023-01-25 12:46 | Outpatient (CLI) | payer MEDICARE, SELFPAY ==
[2019-02-06 12:19] VITALS: BMI 23.8
--- NOTE | 2023-01-25 12:47 | DI.US.S_ITS ---
PROCEDURE: US THYROID INDICATIONS: asses anterior subjective neck mass TECHNIQUE: Real-time scanning was performed of the thyroid gland, with image documentation. COMPARISON: None. FINDINGS: Right: Thyroid lobe measures 4.3 x 1.5 x 1.7 cm, and is homogeneous in echotexture. Left: Thyroid lobe measures 3.7 x 1.2 x 1.0 cm, and is homogenous in echotexture. Isthmus: 2 mm thick. Nodule number: 1 Location: Right superior pole Size: 0.7 x 0.4 x 0.5 cm. Composition: Predominantly solid Echogenicity: Hypoechoic Shape: wider than tall. Margins: Smooth Echogenic foci: Punctate Total points: 7 ACR TI-RADS category: 5 Nodule number: 2 Location: Right midpole Size: 1.2 x 1.8 x 0.8 cm. Composition: Solid/cystic Echogenicity: Hypoechoic Shape: wider than tall. Margins: Smooth Echogenic foci: None Total points: 3 ACR TI-RADS category: 3. Nodule number: 3 Location: Right inferior pole Size: 0.5 x 0.3 x 0.4 cm. Composition: Solid Echogenicity: Hypoechoic Shape: wider than tall. Margins: Smooth Echogenic foci: None Total points: 4 ACR TI-RADS category: 4 IMPRESSION: Multiple thyroid nodules as detailed above. Recommend follow-up in 1 year as per ACR TI-RADS recommendations. ACR TI-RADS definitions and recommendations: TI-RADS 1 (benign): 0 points. FNA not needed. TI-RADS 2 (not suspicious): 2 points. FNA not needed. TI-RADS 3 (mildly suspicious): 3 points. * FNA if 2.5 cm or larger, follow up if 1.5 cm or larger (at 1, 3, and 5 years). TI-RADS 4 (moderately suspicious): 4-6 points. * FNA if 1.5 cm or larger, follow up if 1 cm or larger (at 1, 2, 3, and 5 years). TI-RADS 5 (highly suspicious): 7 points or more. * FNA if 1 cm or larger, follow up if 0.5 cm or larger (every year for 5 years). Dictated by: Karl Engel M.D. on 01/25/2023 at 16:41 Approved by: Karl Engel M.D. on 01/25/2023 at 16:46
== END ==
PROVIDERS: PCP Family Medicine; Referring Provider Family Medicine; Visit Provider Family Medicine
DX: R22.1 Localized swelling, mass and lump, neck (principal); E04.2 Nontoxic multinodular goiter
CPT/HCPCS: 76536

== ENCOUNTER → 2023-02-17 11:23 | Outpatient (CLI) | payer MEDICARE, SELFPAY ==
[2019-02-06 12:19] VITALS: BMI 23.8
--- NOTE | 2023-02-17 | DI.MG.S_ITS ---
BILATERAL DIGITAL SCREENING MAMMOGRAM 3D/2D WITH CAD: 02/17/2023 CLINICAL: Routine screening. Family history of breast cancer. Comparison is made to exams dated: 02/11/2022 mammogram, 02/11/2021 mammogram, and 01/27/2020 mammogram - [facility]. Both breasts are heterogeneously dense, which may obscure small masses (category c / 51-75% glandular tissue). Current study was also evaluated with a Computer Aided Detection (CAD) system. There are benign vascular calcifications in both breasts. No significant masses, calcifications, or other findings are seen in either breast. There has been no significant interval change. IMPRESSION: BENIGN There is no mammographic evidence of malignancy. A 1 year screening mammogram is recommended. Based on the Tyrer Cuzick model (a risk assessment model) the patient's lifetime risk is 8.4% and her 10 year risk is 0.0%. According to the ACR, ACS, and NCCN guidelines, an annual breast MRI exam along with mammogram is recommended if the patient's lifetime risk is 20% or greater. This exam was interpreted at Station ID: [id number]. NOTE: For mammograms, a report in lay terms will be sent to the patient. Approximately 15% of breast malignancies will not be visualized mammographically. In the management of a palpable breast mass, a negative mammogram must not discourage biopsy of a clinically suspicious lesion. Electronically Signed By: Colten hamilton/yvan:02/19/2023 10:14:06 copy to: Jeannine Mccray letter sent: Normal Exam ACR BI-RADS Category 2: Benign Finding(s) [id number]
== END ==
PROVIDERS: PCP Family Medicine; Referring Provider Family Medicine; Visit Provider Family Medicine
DX: Z12.31 Encounter for screening mammogram for malignant neoplasm of breast (principal); Z80.3 Family history of malignant neoplasm of breast
CPT/HCPCS: 77063; 77067

== ENCOUNTER → 2023-02-28 07:28 | Outpatient (CLI) | payer MEDICARE, SELFPAY ==
[2019-02-06 12:19] VITALS: BMI 23.8
[2023-02-28 08:58] LABS: Appearance Urine UA CLEAR; Bilirubin Urine UA NEGATIVE (NEGATIVE); Color Urine UA YELLOW; Glucose Urine UA NEGATIVE (Negative); Ketones Urine UA NEGATIVE (NEGATIVE); Leukocyte Esterase Urine UA NEGATIVE (NEGATIVE); Nitrite Urine UA NEGATIVE (Negative); Occult Blood Urine UA NEGATIVE (Negative); Protein Urine UA NEGATIVE (Negative); Urobilinogen Urine UA 0.2 E.U./dL (0.2)
[2023-02-28 09:07] LABS: Alanine Aminotransferase 19 IU/L (<35); Albumin 4.2 g/dL (3.5-5.0); Albumin Globulin Ratio 1.8 (1.0-2.8); Alkaline Phosphatase 91 U/L (38-126); Aspartate Aminotransferase 28 IU/L (14-36); BUN Creatinine Ratio 28.2 (6-22); Bilirubin Total 0.7 mg/dL (0.2-1.3); Blood Urea Nitrogen 24 mg/dL (7-17); Calcium 9.9 mg/dL (8.4-10.2); Carbon Dioxide 25 mmol/L (22-32); Chloride 101 mmol/L (98-107); Estimated Glomerular Filt Rate > 60 mL/min (>60); Globulin 2.4 g/dL (1.7-4.1); Glucose 95 mg/dL (80-110); HEMOLYSIS < 15 (0-50); Potassium 4.2 mmol/L (3.4-5.1); Sodium 135 mmol/L (137-145); Total Protein 6.6 g/dL (6.3-8.2)
[2023-02-28 09:10] LABS: Bacteria Urine None Seen; RBC Urine None Seen (0-5/HPF); Squamous Epithelial Cell Urine None Seen (0-5/HPF); WBC Urine None Seen (0-5/HPF)
[2023-02-28 09:11] LABS: Culture Indicated Urine Cult Not Indicated
[2023-02-28 09:23] LABS: Free T3, Triiodothyronine Free 3.98 pg/mL (2.77-5.27); Free T4, Direct Thyroxine 1.81 ng/dL (0.78-2.19)
[2023-02-28 09:37] LABS: Thyroid Stimulating Hormone < 0.015 uIU/mL (0.47-4.68)
[2023-02-28 09:41] LABS: Ferritin 83 ng/mL (11-264)
== END ==
PROVIDERS: PCP Family Medicine; Referring Provider Family Medicine; Visit Provider Family Medicine
DX: R10.9 Unspecified abdominal pain (principal); D64.9 Anemia, unspecified; E03.9 Hypothyroidism, unspecified; N13.30 Unspecified hydronephrosis; I10 Essential (primary) hypertension
CPT/HCPCS: 36415; 80053; 81001; 82728; 84439; 84443; 84481

== ENCOUNTER → 2023-03-16 09:08 | Outpatient (CLI) | payer MEDICARE, SELFPAY ==
[2019-02-06 12:19] VITALS: BMI 23.8
--- NOTE | 2023-03-16 09:09 | DI.RAD.S_ITS ---
PROCEDURE: XR KUB INDICATIONS: Nephrolithiasis TECHNIQUE: One view of the abdomen acquired. COMPARISON: None. FINDINGS: Surgical changes and devices: Partially evaluated lower lumbar spinal fixation.. Bowel: Bowel gas pattern is nonobstructive. Soft tissues: No suspicious abdominal calcifications. Visualized solid organ contours appear normal in size. Bones: No suspicious bony lesions. IMPRESSION: No radiographic evidence of nephrolithiasis. Dictated by: Celeste Collins M.D. on 03/16/2023 at 12:10 Approved by: Celeste Collins M.D. on 03/16/2023 at 12:11
== END ==
PROVIDERS: PCP Family Medicine; Referring Provider Specialist; Visit Provider Specialist
DX: N20.0 Calculus of kidney (principal)
CPT/HCPCS: 74018

== ENCOUNTER → 2023-03-27 08:15 | Outpatient (CLI) | payer MEDICARE, SELFPAY ==
[2019-02-06 12:19] VITALS: BMI 23.8
--- NOTE | 2023-03-27 08:17 | DI.RAD.S_ITS ---
PROCEDURE: XR KUB INDICATIONS: Right Renal Stone TECHNIQUE: One view of the abdomen acquired. COMPARISON: [facility], CT, CT KIDNEY URETER BLADDER (KUB), 01/23/2023, 18:29. [facility], CR, XR KUB, 03/16/2023, 9:10. FINDINGS: Surgical changes and devices: None. Bowel: Bowel gas pattern is normal. Soft tissues: No suspicious abdominal calcifications. Visualized solid organ contours appear normal in size. Bones: No suspicious bony lesions. IMPRESSION: No radiographic evidence of nephrolithiasis. Dictated by: Stevie Pierre M.D. on 03/27/2023 at 10:14 Approved by: Stevie Pierre M.D. on 03/27/2023 at 10:15
--- NOTE | 2023-03-27 08:17 | DI.US.S_ITS ---
PROCEDURE: US ABDOMEN LIMITED INDICATIONS: Right Upper Quadrant Pain TECHNIQUE: Real-time focused scanning was performed of the abdomen, with image documentation. COMPARISON: None. FINDINGS: The liver is normal in size and demonstrates no suspicious lesions. There is a 5 mm simple cyst seen adjacent to the gallbladder. No findings of gallstones or sludge are seen. The gallbladder wall is not thickened, measuring 3 mm or less. No specific pericholecystic fluid is seen. The sonographic Quintero sign is negative. There is no biliary dilatation, the common bile duct measures 3 mm. No significant pancreatic abnormality is seen on these images. The visualized right kidney is unremarkable, without hydronephrosis. Right renal cysts are incidentally noted, measuring up to 1.3 cm. IMPRESSION: The gallbladder demonstrates a normal sonographic appearance. No biliary dilatation is seen. Additional findings: Simple liver and right renal cysts Dictated by: Harjinder Kaur M.D. on 03/27/2023 at 9:56 Approved by: Harjinder Kaur M.D. on 03/27/2023 at 9:58
== END ==
PROVIDERS: PCP Family Medicine; Referring Provider Specialist; Visit Provider Specialist
DX: N20.0 Calculus of kidney (principal); R10.9 Unspecified abdominal pain; K76.89 Other specified diseases of liver; N28.1 Cyst of kidney, acquired
CPT/HCPCS: 74018; 76705

== ENCOUNTER → 2023-04-16 11:48 | Outpatient (CLI) | payer MEDICARE, SELFPAY ==
[2019-02-06 12:19] VITALS: BMI 23.8
--- NOTE | 2023-04-16 11:49 | DI.CT.S_ITS ---
PROCEDURE: CT KIDNEY URETER BLADDER (KUB) INDICATIONS: H/O Right Kidney Stone, H/O Left Renal Mass TECHNIQUE: Axial sections were acquired from the lung bases to the pubic symphysis. Coronal and sagittal reformats were performed. For radiation dose reduction, the following was used: automated exposure control, adjustment of mA and/or kV according to patient size. COMPARISON: [facility], CT, CT KIDNEY URETER BLADDER (KUB), 01/23/2023, 18:29. FINDINGS: Image quality: Diagnostic. Lower Chest: No significant findings. URINARY: Right Kidney: 5 millimeter nonobstructing nephrolithiasis (571 Hounsfield unit) in the inferior pole. No obstructing stones. No hydronephrosis. Right Ureter: No hydroureter. Left Kidney: No stones or hydronephrosis. Partially exophytic lesion with indeterminate attenuation on the lateral margin of the left kidney measuring 1.4 centimeter (series 2, image 28). Left Ureter: No hydroureter. Bladder: Normal wall thickness. No stones. ABDOMEN: Liver: No contour-deforming solid mass. Gallbladder: No radiopaque gallstones or wall thickening. Biliary ducts: No biliary dilation. Pancreas: No ductal dilation. Spleen: Size is within normal limits. Adrenal Glands: No adrenal nodules. Stomach and Bowel: Normal colonic caliber, without significant wall thickening. Peritoneum: No abnormal intraperitoneal fluid. No free air. Ventral Wall: No hernia. Abdominal Nodes: No enlarged retroperitoneal or mesenteric lymph nodes. Vessels: Aorta and inferior vena cava are normal in size. PELVIS: Pelvic Organs: Unremarkable. Pelvic Nodes: Unremarkable. Miscellaneous: No inguinal hernias are seen. Bones: Surgical fusion L3 through L5. Retained transpedicular screw right L5. IMPRESSION: No obstructing stones or hydronephrosis. 5 millimeter nonobstructing stone in the inferior calyx of the right kidney. 1.4 centimeter exophytic lesion on the lateral margin of the left kidney. Recommend further characterization with MRI or CT (renal mass protocol). Dictated by: Stevie Pierre M.D. on 04/16/2023 at 16:18 Approved by: Stevie Pierre M.D. on 04/16/2023 at 16:21
== END ==
LOC: CT 11:48
PROVIDERS: PCP Family Medicine; Referring Provider Specialist; Visit Provider Specialist
DX: N20.0 Calculus of kidney (principal); N28.89 Other specified disorders of kidney and ureter; Z87.442 Personal history of urinary calculi
CPT/HCPCS: 74176

== ENCOUNTER → 2023-07-04 08:50 | Outpatient (CLI) | payer MEDICARE, SELFPAY ==
[2019-02-06 12:19] VITALS: BMI 23.8
--- NOTE | 2023-07-04 08:51 | DI.MRI.S_ITS ---
PROCEDURE: MR LUMBAR SPINE WO CON INDICATIONS: Pain in right hip TECHNIQUE: Noncontrast sagittal T1 spin echo and T2 fast echo, sagittal STIR, and T2 fast spin echo through the lumbar spine. In cases with scoliosis, additional coronal T2 fast spin echo may be performed. COMPARISON: [facility], MR, MR LUMBAR SPINE WO CON, 03/03/2021, 16:38. FINDINGS: Image quality: Excellent. Alignment and Curvature: Mild anterolisthesis of L4 on L5 is stable. Bone Marrow: Postsurgical changes from L3 through L5 posterior spinal fixation and discectomy. L1 vertebral body hemangioma. Marrow is of normal overall signal. No acute vertebral body compression fractures. Spinal Cord: Conus medullaris terminates at the L1-L2 level. Visualized cord demonstrates normal signal and size. Paraspinous Soft Tissues: No paravertebral masses. T12-L1: Normal appearance. L1-L2: Mild disc desiccation. No central canal or neural foraminal stenosis. L2-L3: Disc desiccation height loss. Mild disc bulge. Facet arthropathy. Moderate to severe central canal stenosis progressed compared to prior. Mild bilateral neural foraminal stenosis. L3-L4: Postoperative changes. No central canal stenosis. Stable severe left and moderate to severe right neural foraminal stenosis. L4-L5: Postoperative changes. No central canal stenosis. No significant neural foraminal stenosis. L5-S1: Disc desiccation and mild disc bulge. No central canal stenosis. Stable moderate to severe bilateral neural foraminal stenosis. IMPRESSION: 1. Multilevel degenerative changes of the spine status post L3 through L5 posterior spinal fixation. 2. Progression of moderate to severe central canal stenosis at L2-L3. 3. Stable high-grade neural foraminal stenosis at L3-L4 and L5-S1. Dictated by: Jasbir Villasenor M.D. on 07/04/2023 at 10:29 Approved by: Jasbir Villasenor M.D. on 07/04/2023 at 10:37
== END ==
LOC: MRI 08:50
PROVIDERS: PCP Family Medicine; Referring Provider Orthopaedic Surgery; Visit Provider Orthopaedic Surgery
DX: M47.816 Spondylosis without myelopathy or radiculopathy, lumbar region (principal); M48.061 Spinal stenosis, lumbar region without neurogenic claudication; M48.07 Spinal stenosis, lumbosacral region; M25.551 Pain in right hip
CPT/HCPCS: 72148

== ENCOUNTER → 2023-09-05 08:51 | Outpatient (CLI) | payer MEDICARE, SELFPAY ==
[2019-02-06 12:19] VITALS: BMI 23.8
[2023-09-05 09:49] LABS: Estimated Glomerular Filt Rate 56 mL/min (>60)
--- NOTE | 2023-09-05 10:30 | DI.CT.S_ITS ---
PROCEDURE: CT ABDOMEN RENAL PROTOCOL INDICATIONS: Left Renal Mass TECHNIQUE: Optional 5 mm thick noncontrast images acquired from the diaphragm to the iliac crests. After the administration of intravenous contrast, 5 mm thick images again acquired from the diaphragm to the iliac crests in the arterial and urographic phases. 5 mm thick coronal and sagittal reformats were then acquired. For radiation dose reduction, the following was used: automated exposure control, adjustment of mA and/or kV according to patient size. COMPARISON: CT, CT KIDNEY URETER BLADDER (KUB), 01/23/2023, 18:29. [facility], US, US ABDOMEN LIMITED, 03/27/2023, 8:45. [facility], MR, MR LUMBAR SPINE WO CON, 07/04/2023, 9:00. FINDINGS: Image quality: Diagnostic. Kidneys and Ureters: Nonobstructing 0.7 cm stone in the right lower pole with Hounsfield units of 860. No other intrarenal calculi. No hydronephrosis. Right anterior lower pole 1.6 cm renal mass with Hounsfield units of 59 precontrast, 59 on the arterial phase, and 70 on the delayed phase. 1.4 cm lateral left upper pole hyperdense mass measuring 50 Hounsfield units precontrast. Postcontrast Hounsfield units are unreliable given the presence of metallic beam hardening artifact through this area. There is no subjective enhancement. A few other smaller cortical nonenhancing cysts are present bilaterally. No suspicious solid mass. Normal opacification of the collecting systems. The visible portions of the ureters are normal caliber. OTHER: Lower chest: Unremarkable. Liver: No enhancing mass. Small cyst. Gallbladder: No wall thickening or calcified stones. Biliary ducts: No biliary dilation. Pancreas: Normal size and morphology without visible ductal dilatation or inflammation. Spleen: Size is within normal limits. Adrenal Glands: No adrenal nodules. Stomach and Bowel: Stomach and visible bowel loops are within normal limits. Peritoneum: No abnormal intraperitoneal fluid. No free air. Ventral Wall: No hernia. Abdominal Nodes: No retroperitoneal or mesenteric adenopathy by size criteria. Vessels: Aorta and inferior vena cava are normal in size. Moderate abdominal aortic atherosclerotic calcification. Bones: There is posterior fusion hardware from L3 through L5 with intervertebral spacers L3-4 and L4-5. Superior endplate degeneration at L3 and to lesser extent L5. IMPRESSION: Nonenhancing hyperdense cyst in the anterior lower pole right kidney. Probably nonenhancing hyperdense cyst in the lateral midpole left kidney, no size change since 01/23/23. Nonobstructing right intrarenal lower pole calculus. Dictated by: Yolanda Lindsey M.D. on 09/05/2023 at 12:27 Approved by: Yolanda Lindsey M.D. on 09/05/2023 at 12:42
[2023-09-05 10:51] LABS: Alanine Aminotransferase 15 IU/L (<35); Albumin 4.5 g/dL (3.5-5.0); Albumin Globulin Ratio 2.4 (1.0-2.8); Alkaline Phosphatase 72 U/L (38-126); Aspartate Aminotransferase 28 IU/L (14-36); BUN Creatinine Ratio 24.8 (6-22); Bilirubin Total 0.7 mg/dL (0.2-1.3); Blood Urea Nitrogen 25 mg/dL (7-17); Calcium 9.5 mg/dL (8.4-10.2); Carbon Dioxide 27 mmol/L (22-32); Chloride 106 mmol/L (98-107); Cholesterol 181 mg/dL (140-199); Estimated Glomerular Filt Rate 57 mL/min (>60); Globulin 1.9 g/dL (1.7-4.1); Glucose 100 mg/dL (80-110); HDL Cholesterol 94 mg/dL (40-60); HEMOLYSIS < 15 (0-50); LDL Cholesterol Calculated 76 mg/dL (<100); Potassium 4.8 mmol/L (3.4-5.1); Sodium 140 mmol/L (137-145); Total Protein 6.4 g/dL (6.3-8.2); Triglycerides 54 mg/dL (35-150)
[2023-09-05 11:00] LABS: Free T4, Direct Thyroxine 1.99 ng/dL (0.78-2.19)
[2023-09-05 11:15] LABS: Thyroid Stimulating Hormone < 0.015 uIU/mL (0.47-4.68)
== END ==
LOC: CT 08:52
PROVIDERS: PCP Family Medicine; Referring Provider Specialist; Visit Provider Specialist
DX: N28.1 Cyst of kidney, acquired (principal); D41.02 Neoplasm of uncertain behavior of left kidney; N20.0 Calculus of kidney; K76.89 Other specified diseases of liver; E78.5 Hyperlipidemia, unspecified; I10 Essential (primary) hypertension; E03.9 Hypothyroidism, unspecified; Z98.1 Arthrodesis status
CPT/HCPCS: 36415; 74170; 80053; 80061; 82565; 84439; 84443; Q9967

== ENCOUNTER → 2023-10-15 14:39 | Outpatient (CLI) | payer MEDICARE, SELFPAY ==
[2019-02-06 12:19] VITALS: BMI 23.8
[2023-10-15 15:48] LABS: Calcium 9.7 mg/dL (8.4-10.2)
[2023-10-15 16:03] LABS: Vitamin D 25 Hydroxy (D3) 63.2 ng/mL (30.0-100.0)
[2023-10-15 16:06] LABS: Free T4, Direct Thyroxine 2.07 ng/dL (0.78-2.19)
[2023-10-15 16:21] LABS: Thyroid Stimulating Hormone < 0.015 uIU/mL (0.47-4.68)
== END ==
PROVIDERS: PCP Family Medicine; Referring Provider Student in an Organized Health Care Education/Training Program; Visit Provider Student in an Organized Health Care Education/Training Program
DX: E04.9 Nontoxic goiter, unspecified (principal)
CPT/HCPCS: 36415; 82306; 82310; 83970; 84439; 84443

== ENCOUNTER → 2023-11-16 09:31 | Outpatient (CLI) | payer MEDICARE, SELFPAY ==
[2019-02-06 12:19] VITALS: BMI 23.8
[2023-11-16 10:46] LABS: Vitamin D 25 Hydroxy (D3) 46.1 ng/mL (30.0-100.0)
[2023-11-16 10:47] LABS: Free T4, Direct Thyroxine 1.92 ng/dL (0.78-2.19)
[2023-11-16 11:01] LABS: Thyroid Stimulating Hormone 0.018 uIU/mL (0.47-4.68)
[2023-11-17 09:11] LABS: Calcium 9.6 mg/dL (8.7-10.3); Parathyroid Hormone, Intact 35 pg/mL (15-65)
== END ==
PROVIDERS: PCP Family Medicine; Referring Provider Student in an Organized Health Care Education/Training Program; Visit Provider Student in an Organized Health Care Education/Training Program
DX: E04.9 Nontoxic goiter, unspecified (principal); E03.9 Hypothyroidism, unspecified
CPT/HCPCS: 36415; 82306; 82310; 83970; 84439; 84443

== ENCOUNTER → 2024-01-18 10:54 | Outpatient (CLI) | payer MEDICARE, SELFPAY ==
[2019-02-06 12:19] VITALS: BMI 23.8
[2024-01-18 12:22] LABS: Vitamin D 25 Hydroxy (D3) 78.2 ng/mL (30.0-100.0)
[2024-01-18 12:32] LABS: Free T4, Direct Thyroxine 1.37 ng/dL (0.78-2.19)
[2024-01-18 12:46] LABS: Thyroid Stimulating Hormone 0.389 uIU/mL (0.47-4.68)
[2024-01-20 10:08] LABS: Calcium 9.7 mg/dL (8.7-10.3); Parathyroid Hormone, Intact 27 pg/mL (15-65)
== END ==
PROVIDERS: PCP Family Medicine; Referring Provider Student in an Organized Health Care Education/Training Program; Visit Provider Student in an Organized Health Care Education/Training Program
DX: E03.9 Hypothyroidism, unspecified (principal)
CPT/HCPCS: 36415; 82306; 82310; 83970; 84439; 84443

== ENCOUNTER → 2024-02-23 10:19 | Outpatient (CLI) | payer MEDICARE, SELFPAY ==
[2019-02-06 12:19] VITALS: BMI 23.8
--- NOTE | 2024-02-23 | DI.MG.S_ITS ---
BILATERAL DIGITAL SCREENING MAMMOGRAM 3D/2D WITH CAD: 02/23/2024 CLINICAL: Routine screening. Family history of breast cancer. Comparison is made to exams dated: 02/17/2023 mammogram, 02/11/2022 mammogram, and 02/11/2021 mammogram - [facility]. The breasts are heterogeneously dense, which may obscure small masses (category c / 51-75% glandular tissue). Current study was also evaluated with a Computer Aided Detection (CAD) system. There are benign vascular calcifications in both breasts. No significant masses, calcifications, or other findings are seen in either breast. There has been no significant interval change. IMPRESSION: BENIGN There is no mammographic evidence of malignancy. A 1 year screening mammogram is recommended. Based on the Tyrer Cuzick model (a risk assessment model) the patient's lifetime risk is 7.6% and her 10 year risk is 0.0%. According to the ACR, ACS, and NCCN guidelines, an annual breast MRI exam along with mammogram is recommended if the patient's lifetime risk is 20% or greater. This exam was interpreted at Station ID: [id number]. NOTE: For mammograms, a report in lay terms will be sent to the patient. Approximately 15% of breast malignancies will not be visualized mammographically. In the management of a palpable breast mass, a negative mammogram must not discourage biopsy of a clinically suspicious lesion. Electronically Signed By: Yolanda villa/yvan:02/25/2024 11:46:22 copy to: Jeannine Mccray letter sent: Normal Exam ACR BI-RADS Category 2: Benign
== END ==
PROVIDERS: PCP Family Medicine; Referring Provider Obstetrics & Gynecology; Visit Provider Obstetrics & Gynecology
DX: Z12.31 Encounter for screening mammogram for malignant neoplasm of breast (principal); Z80.3 Family history of malignant neoplasm of breast; R92.333 Mammographic heterogeneous density, bilateral breasts
CPT/HCPCS: 77063; 77067

== ENCOUNTER → 2024-03-06 10:40 | Outpatient (CLI) | payer MEDICARE, SELFPAY ==
[2019-02-06 12:19] VITALS: BMI 23.8
[2024-03-04 14:32] VITALS: BMI 23.8
--- NOTE | 2024-03-06 10:41 | DI.RAD.S_ITS ---
PROCEDURE: XR DEXA AXIAL SKELETON INDICATIONS: Osteoporosis screening COMPARISON: [facility], CR, XR DEXA AXIAL SKELETON, 07/15/2021, 10:49. [facility], CR, XR DEXA AXIAL SKELETON, 04/03/2019, 10:10. FINDINGS: Left Hip: Bone mineral density is 0.898 g/cm2, T score -0.4, decreased by 6.8 percent. Left Femoral Neck: Bone mineral density 0.692 g/cm2, T score -1.4. Right Hip: Bone mineral density 0.890 g/cm2, T score -0.4, decreased by 7.9 percent. Right Femoral Neck: Bone mineral density 0.664 g/cm2, T score -1.7. Left Forearm: Bone mineral density 0.686 g/cm2, T score -0.1. Fracture Risk Calculation (when applicable): 10-year fracture risk of a major osteoporotic fracture 12 percent and of a hip fracture 2.9 percent. (T score greater or equal to -1.0 to: NORMAL) (T score from -1.1 to -2.4: OSTEOPENIA) (T score less than or equal to -2.5: OSTEOPOROSIS) IMPRESSION: Low bone mineral density (osteopenia) by WHO classification. Follow-up guidelines as follows: Osteoporosis: Consider a repeat DEXA and Vertebral Fracture Assessment (VFA) exam in 2 years or sooner if medically necessary, to reassess this patient's status. Osteopenia: Consider a repeat DEXA in 2-3 years to reassess this patient's status, or if there is a new clinical indication. Normal: Consider a repeat DEXA in 5 years or sooner, or if there is a new clinical indication. All treatment decisions require clinical judgment and consideration of individual patient factors, including patient preferences, comorbidities, previous drug use, risk factors not captured in the FRAX model (e.g., frailty, falls, vitamin D deficiency, increased bone turnover, interval significant decline in bone density ) and possible under- or over-estimation of fracture risk by FRAX. In addition, the NOF Guide recommends that FDA-approved medical therapies be considered in postmenopausal women and men age >= 50 years with a: * Hip or vertebral (clinical or morphometric) fracture * T-score of <=-2.5 at the spine or hip * Ten-year fracture probability by FRAX of >= 3% for hip fracture or >=20% for major osteoporotic fracture. People with diagnosed cases of osteoporosis or at high risk for fracture should have regular bone mineral density tests. For patients eligible for Medicare, routine testing is allowed once every 2 years. The testing frequency can be increased to one year for patients who have rapidly progressing disease, those who are receiving or discontinuing medical therapy to restore bone mass, or have additional risk factors. Dictated by: Jasbir Villasenor M.D. on 03/06/2024 at 16:41 Approved by: Jasbir Villasenor M.D. on 03/06/2024 at 16:42
== END ==
PROVIDERS: PCP Family Medicine; Referring Provider Obstetrics & Gynecology; Visit Provider Obstetrics & Gynecology
DX: M85.89 Other specified disorders of bone density and structure, multiple sites (principal)
CPT/HCPCS: 77080; 77081

== ENCOUNTER → 2024-03-12 09:03 | Outpatient (CLI) | payer MEDICARE, SELFPAY ==
[2024-03-04 14:32] VITALS: BMI 23.8
== END ==
PROVIDERS: PCP Family Medicine; Visit Provider Urology
DX: R39.9 Unspecified symptoms and signs involving the genitourinary system (principal)
CPT/HCPCS: 87086

== ENCOUNTER → 2024-03-14 15:14 | Outpatient (CLI) | payer MEDICARE, SELFPAY ==
[2024-03-04 14:32] VITALS: BMI 23.8
[2024-03-14 18:08] LABS: TSH w/ Reflex to FT4 1.16 uIU/mL (0.47-4.68)
== END ==
PROVIDERS: PCP Family Medicine; Referring Provider Student in an Organized Health Care Education/Training Program; Visit Provider Student in an Organized Health Care Education/Training Program
DX: E03.9 Hypothyroidism, unspecified (principal)
CPT/HCPCS: 36415; 84443

== ENCOUNTER → 2024-03-27 11:37 | Outpatient (CLI) | payer MEDICARE, SELFPAY ==
[2024-03-04 14:32] VITALS: BMI 23.8
[2024-03-27 13:12] LABS: Free T4, Direct Thyroxine 1.33 ng/dL (0.78-2.19)
[2024-03-27 13:26] LABS: Thyroid Stimulating Hormone 0.921 uIU/mL (0.47-4.68)
== END ==
PROVIDERS: PCP Family Medicine; Referring Provider Student in an Organized Health Care Education/Training Program; Visit Provider Student in an Organized Health Care Education/Training Program
DX: E03.9 Hypothyroidism, unspecified (principal)
CPT/HCPCS: 36415; 84439; 84443

== ENCOUNTER → 2024-05-09 10:16 | Outpatient (CLI) | payer MEDICARE, SELFPAY ==
[2024-03-04 14:32] VITALS: BMI 23.8
[2024-05-09 12:50] LABS: Free T4, Direct Thyroxine 1.39 ng/dL (0.78-2.19)
[2024-05-09 13:04] LABS: Thyroid Stimulating Hormone 0.804 uIU/mL (0.47-4.68)
== END ==
LOC: LAB 10:17
PROVIDERS: PCP Family Medicine; Referring Provider Student in an Organized Health Care Education/Training Program; Visit Provider Student in an Organized Health Care Education/Training Program
DX: E03.9 Hypothyroidism, unspecified (principal)
CPT/HCPCS: 36415; 84439; 84443

== ENCOUNTER → 2024-07-08 11:57 | Outpatient (CLI) | payer MEDICARE, SELFPAY ==
[2024-03-04 14:32] VITALS: BMI 23.8
[2024-07-08 12:48] LABS: Add Manual Diff / Slide Review NO; Basophils Absolute Auto 0 /uL (0-100); Basophils Percent Auto 0.9 % (0-2); Eosinophils Absolute Auto 100 /uL (0-450); Eosinophils Percent Auto 2.7 % (2-4); Hematocrit 39.4 % (36-46); Hemoglobin 13.2 g/dL (12.0-16.0); Lymphocytes Absolute Auto 1400 /uL (1100-4500); Lymphocytes Percent Auto 26.4 % (25-40); Mean Corpuscular HGB Conc 33.5 % (30-36); Mean Corpuscular Volume 95.6 fL (80-100); Monocytes Absolute Auto 400 /uL (0-900); Monocytes Percent Auto 7.4 % (3-14); Neutrophils Absolute Auto 3200 /uL (1500-7000); Neutrophils Percent Auto 62.6 % (50-75); Platelet Count 209 X10^3/uL (150-400); Red Blood Cell Count 4.12 X10^6/uL (4.0-5.2); Red Cell Distribution Width 13.5 % (11.6-14.8); White Blood Cell Count 5.2 X10^3/uL (4.5-11.0)
[2024-07-08 13:34] LABS: HEMOLYSIS < 15 (0-50); Iron 89 ug/dL (37-170)
[2024-07-08 13:36] LABS: Alanine Aminotransferase 18 IU/L (<35); Albumin 4.4 g/dL (3.5-5.0); Albumin Globulin Ratio 2.1 (1.0-2.8); Alkaline Phosphatase 67 U/L (38-126); Aspartate Aminotransferase 34 IU/L (14-36); BUN Creatinine Ratio 22.5 (6-22); Bilirubin Total 0.5 mg/dL (0.2-1.3); Blood Urea Nitrogen 23 mg/dL (7-17); Calcium 9.6 mg/dL (8.4-10.2); Carbon Dioxide 28 mmol/L (22-32); Chloride 102 mmol/L (98-107); Cholesterol 176 mg/dL (140-199); Estimated Glomerular Filt Rate 57 mL/min (>60); Globulin 2.1 g/dL (1.7-4.1); Glucose 85 mg/dL (80-110); HDL Cholesterol 94 mg/dL (40-60); HEMOLYSIS < 15 (0-50); LDL Cholesterol Calculated 73 mg/dL (<100); Potassium 4.8 mmol/L (3.4-5.1); Sodium 136 mmol/L (137-145); Total Protein 6.5 g/dL (6.3-8.2); Triglycerides 44 mg/dL (35-150)
[2024-07-08 13:46] LABS: Percent Iron Saturation 29 % (15-50); Total Iron Binding Capacity 306 ug/dL (265-497); Transferrin 244 mg/dL (206-381)
[2024-07-08 13:52] LABS: Free T4, Direct Thyroxine 1.73 ng/dL (0.78-2.19)
[2024-07-08 14:08] LABS: Thyroid Stimulating Hormone 0.566 uIU/mL (0.47-4.68)
[2024-07-08 14:25] LABS: Vitamin B12 744 pg/mL (239-931)
[2024-07-09 08:09] LABS: Rubeola Measles IgG > 300.0 AU/mL (Immune >16.4)
== END ==
LOC: LAB 11:59
PROVIDERS: PCP Family Medicine; Referring Provider Student in an Organized Health Care Education/Training Program; Visit Provider Student in an Organized Health Care Education/Training Program
DX: E04.9 Nontoxic goiter, unspecified (principal); E03.9 Hypothyroidism, unspecified; I10 Essential (primary) hypertension; Z86.19 Personal history of other infectious and parasitic diseases; F41.1 Generalized anxiety disorder; E78.5 Hyperlipidemia, unspecified
CPT/HCPCS: 36415; 80053; 80061; 82607; 83540; 83550; 84439; 84443; 85025; 86765

== ENCOUNTER → 2024-08-26 11:51 | Outpatient (CLI) | payer MEDICARE, SELFPAY ==
[2024-03-04 14:32] VITALS: BMI 23.8
[2024-08-26 12:58] LABS: Estimated Glomerular Filt Rate > 60 mL/min (>60)
[2024-08-26 13:17] LABS: Free T4, Direct Thyroxine 1.67 ng/dL (0.78-2.19)
[2024-08-26 13:30] LABS: Thyroid Stimulating Hormone 0.737 uIU/mL (0.47-4.68)
== END ==
PROVIDERS: Urology; PCP Family Medicine; Referring Provider Student in an Organized Health Care Education/Training Program; Visit Provider Student in an Organized Health Care Education/Training Program
DX: E03.9 Hypothyroidism, unspecified (principal); N20.0 Calculus of kidney
CPT/HCPCS: 36415; 82565; 84439; 84443

== ENCOUNTER → 2024-09-07 13:40 | Outpatient (CLI) | payer MEDICARE, SELFPAY ==
[2024-03-04 14:32] VITALS: BMI 23.8
--- NOTE | 2024-09-07 13:41 | DI.CT.S_ITS ---
PROCEDURE: CT ABDOMEN RENAL PROTOCOL INDICATIONS: Cyst on kidney TECHNIQUE: Optional 5 mm thick noncontrast images acquired from the diaphragm to the iliac crests. After the administration of intravenous contrast, 5 mm thick images again acquired from the diaphragm to the iliac crests in the arterial and urographic phases. 5 mm thick coronal and sagittal reformats were then acquired. For radiation dose reduction, the following was used: automated exposure control, adjustment of mA and/or kV according to patient size. COMPARISON: [facility], CT, CT ABDOMEN RENAL PROTOCOL, 09/05/2023, 9:59. FINDINGS: Image quality: Diagnostic. Kidneys and Ureters: No hydronephrosis. No solid mass. Previously described 1.6 cm nonenhancing hyperdense cyst in anterior cortex of lower pole right kidney remains stable in size and appearance series 2, image 65. 1.3 x 1.4 cm nonenhancing cyst in anterior cortex of upper pole right kidney is slightly Mallory compared to previous study series 4, image 51 previously described hyperdense lesion in posterior lateral cortex of upper pole left kidney now measures 1.8 x 1.9 cm in size series 4, image 35 and measures approximately 36 Hounsfield unit in density during arterial and delayed phase of the scan. Additional smaller nonenhancing cystic structures are seen in bilateral kidneys unchanged from prior study. Nonobstructing stone is again seen in mid to lower pole right kidney. No left-sided renal stone. OTHER: Lower chest: Unremarkable. Liver: No solid mass. Gallbladder: No radiopaque gallstones or wall thickening. Biliary ducts: No biliary dilation. Pancreas: No ductal dilation. Spleen: Size is within normal limits. Adrenal Glands: No adrenal nodules. Stomach and Bowel: There is no bowel obstruction or abnormal bowel wall thickening. No mesenteric fat stranding. No abscess collection. Peritoneum: No abnormal intraperitoneal fluid. No free air. Ventral Wall: No hernia. Abdominal Nodes: No retroperitoneal or mesenteric adenopathy by size criteria. Vessels: Aorta and inferior vena cava are normal in size. Bones: No aggressive osseous abnormality. Postsurgical changes are seen in lower lumbar spine. IMPRESSION: 1. Interval slight increase in size of patient's known hyperdense lesion in posterior lateral cortex of upper pole left kidney now measures up to 1.8 x 1.9 cm in size. No definite contrast enhancement is noted. 2. Interval slight increase in size of a nonenhancing cyst in anterior cortex of upper pole right kidney. 3. 1.6 cm nonenhancing hyperdense cyst in anterior cortex of lower pole right kidney remains stable. 4. Nonobstructing stone in right kidney. No hydronephrosis. Continued CT follow-up in 12 month is recommended. Dictated by: Oj Collazo M.D. on 09/07/2024 at 21:20 Approved by: Oj Collazo M.D. on 09/07/2024 at 21:32
== END ==
LOC: CT 13:41
PROVIDERS: PCP Family Medicine; Referring Provider Urology; Visit Provider Urology
DX: Q61.9 Cystic kidney disease, unspecified (principal); N20.0 Calculus of kidney; N28.9 Disorder of kidney and ureter, unspecified
CPT/HCPCS: 74170; Q9967

== ENCOUNTER → 2024-12-29 07:59 | Outpatient (CLI) | payer MEDICARE, SELFPAY ==
[2024-03-04 14:32] VITALS: BMI 23.8
--- NOTE | 2024-12-29 08:00 | DI.US.S_ITS ---
PROCEDURE: US INJECTION TENDON SHEATH INDICATIONS: prox bicep tendon CSI TECHNIQUE: The indications, alternatives, benefits, risks, and complications of the procedure were explained to the patient. Written informed consent was obtained and placed in the chart. The patient was placed in an appropriate position on the fluoroscopy table, and a site was chosen for percutaneous access under ultrasound guidance. Local anesthetic was administered using a 1% lidocaine solution. A hypodermic or spinal needle was then used to access the symptomatic joint. Intra-articular location of the needle tip was confirmed by real time ultrasound imaging, followed by steroid administration. The needle was then withdrawn, and a bandage applied to the puncture site. COMPARISON: None. FINDINGS: Joint injected: Right biceps tendon sheath Medications injected: 1.5 mL of 40 mg/mL Kenalog and 0.5% Ropivacaine mixture. Complications: None. IMPRESSION: Successful ultrasound guided administration of steroid and anaesthetic solution into the right biceps tendon sheath. Dictated by: Jasbir Villasenor M.D. on 12/29/2024 at 15:12 Approved by: Jasbir Villasenor M.D. on 12/29/2024 at 15:13
== END ==
PROVIDERS: Family Provider Family Medicine; PCP Family Medicine; Referring Provider Family Medicine; Visit Provider Radiology Diagnostic Radiology
DX: M75.21 Bicipital tendinitis, right shoulder (principal)
CPT/HCPCS: 20550; 76942

== ENCOUNTER → 2025-02-21 07:53 | Outpatient (CLI) | payer MEDICARE, SELFPAY ==
[2024-03-04 14:32] VITALS: BMI 23.8
--- NOTE | 2025-02-21 07:59 | DI.MG.S_ITS ---
MM screening mammo BI: 02/21/2025. BI-RADS: 1 CLINICAL: 79-year old female for bilateral screening mammogram. Tyrer-Cuzick lifetime risk of 5.3%. Current reported family history of breast cancer: mother. PRIOR EXAMS 02/23/2024, 02/17/2023, 02/11/2022, 02/11/2021. MAMMOGRAPHY TECHNIQUE: 2D and 3D (tomosynthesis) digital mammographic views obtained, with additional images as needed for full coverage. Current study was also evaluated with a Computer Aided Detection (CAD) system. DENSITY C. The breasts are heterogeneously dense, which may obscure small masses. MAMMOGRAPHY FINDINGS Bilateral: No suspicious mass, asymmetry, microcalcification, or other abnormality seen. IMPRESSION: * No evidence of malignancy. RECOMMENDATIONS Bilateral * Annual screening mammography. OVERALL ASSESSMENT CATEGORY BI-RADS-1: Negative. The [employer] recommends annual screening mammography beginning at age 40 for women with average risk of breast cancer. ELECTRONICALLY SIGNED: Sherrell Mane M.D. on 02/23/2025 at 02:55:29 PM PT Interpreting Station ID: [id number]
== END ==
LOC: MAMMO 07:55
PROVIDERS: Family Provider Family Medicine; PCP Family Medicine; Referring Provider Family Medicine; Visit Provider Family Medicine
DX: Z12.31 Encounter for screening mammogram for malignant neoplasm of breast (principal); R92.333 Mammographic heterogeneous density, bilateral breasts; Z80.3 Family history of malignant neoplasm of breast
CPT/HCPCS: 77063; 77067

== ENCOUNTER → 2025-03-12 09:22 | Outpatient (CLI) | payer MEDICARE, SELFPAY ==
[2024-03-04 14:32] VITALS: BMI 23.8
[2025-03-12 10:33] LABS: Free T4, Direct Thyroxine 1.54 ng/dL (0.78-2.19)
[2025-03-12 10:47] LABS: Thyroid Stimulating Hormone 0.955 uIU/mL (0.47-4.68)
== END ==
PROVIDERS: Family Provider Family Medicine; PCP Family Medicine; Referring Provider Student in an Organized Health Care Education/Training Program; Visit Provider Student in an Organized Health Care Education/Training Program
DX: E03.9 Hypothyroidism, unspecified (principal)
CPT/HCPCS: 36415; 84439; 84443